=== PATIENT | male | born 1985 | race African-American/Black ===

== ENCOUNTER 2017-12-17 12:30 | Inpatient (IN) ==
[2017-12-17] MEDS ORDERED: Sod Chloride 0.9% Inj 1,000 ML IV.SIG ONE ×2 (14:31→16:46)
--- NOTE | 2017-12-17 14:50 | ED ---
HPI General Chief complaint: Weakness Stated complaint: General weakness Time Seen by Provider: 12/17/17 14:21 Source: patient Mode of arrival: ambulatory Limitations: no limitations History of Present Illness HPI Narrative: Patient is a previously healthy 32-year-old male who presents with complaint of generalized weakness over the last several days. He states that several days ago he was working out and that he thinks he got dehydrated. He has had myalgias and generalized weakness since. He has been trying to rehydrate but thinks his urine is darker than normal. He denies fever and chills. Denies abdominal pain, chest pain, dyspnea. He does state that he also has some "boils" in his right groin that appeared after he was working in the sun that he is also concerned about. Complaint: generalized weakness Onset (ago): day(s) Duration: constant Location: generalized Migration: none Severity: mild Relieving factors: none Exacerbating factors: none Related Data Home Medications Medication Instructions Recorded Confirmed No Known Home Medications 12/17/17 12/17/17 Allergies Allergy/AdvReac Type Severity Reaction Status Date / Time No Known Allergies Allergy Verified 12/17/17 14:25 Review of Systems ROS: all other systems reviewed are negative Constitutional Denies fever(s) Eyes Denies blurry vision ENT Denies nasal congestion Cardiovascular Denies chest pain Respiratory Denies dyspnea Gastrointestinal Denies abdominal pain Genitourinary Denies flank pain Musculoskeletal Denies back pain and Denies neck pain Neurologic Denies headache(s) [facility] Medical History Medical History Patient denies medical problems (Acute) Social History Social History Substance History: No History of Abuse Second Hand Smoke Exposure: No Smoking Status: Never smoker How Often Do You Have a Drink Containing Alcohol: Monthly or less Recent Travel in [facility] within the Last 8 Weeks: No Recent Out of Country Travel within the Last 8 Weeks: No Immunization History Tetanus Immunization: Unsure Hx Influenza Vaccine This Season: Unable to Assess Exam Narrative Exam Narrative: GENERAL: Well-appearing male in no acute distress SKIN: Focused skin assessment warm/dry. No rashes. Enlarged lymph node in the right groin. HEAD: Atraumatic. Normocephalic. EYES: Pupils equal and round. No scleral icterus. No injection or drainage. ENT: No nasal bleeding or discharge. Mucous membranes pink and dry. NECK: Trachea midline. No JVD. CARDIOVASCULAR: Regular rate and rhythm. No murmur appreciated. Intact and equal peripheral pulses. RESPIRATORY: No accessory muscle use. Clear to auscultation. Breath sounds equal bilaterally. GASTROINTESTINAL: Abdomen soft, non-tender, nondistended. Hepatic and splenic margins not palpable. MUSCULOSKELETAL: No obvious deformities. No clubbing. No cyanosis. No edema. NEUROLOGICAL: Awake and alert. No obvious cranial nerve deficits. Motor grossly within normal limits. Normal sensation. No ataxia. Normal speech. PSYCHIATRIC: Appropriate mood and affect; insight and judgment normal. Course Initial Documented Vital Signs Temperature 98.2 F 12/17/17 12:34 Pulse Rate 108 H 12/17/17 12:34 Respiratory Rate 20 12/17/17 12:34 Blood Pressure 148/86 H 12/17/17 12:34 Pulse Oximetry 99 12/17/17 12:34 Last Documented Vital Signs Temperature 98.2 F 12/17/17 12:34 Pulse Rate 108 H 12/17/17 12:34 Respiratory Rate 20 12/17/17 12:34 Blood Pressure 148/86 H 12/17/17 12:34 Pulse Oximetry 99 12/17/17 15:22 Medical Decision Making MDM Narrative Medical decision making narrative: Patient is a previously healthy 32-year-old male who presents with complaint of several days of weakness. He appeared dehydrated on arrival was given 2 L. Labs did reveal a metabolic acidosis with hyperglycemia and elevated beta hydroxybutyrate acid, consistent with DKA. He has been started on an insulin drip with fluids per the DKA protocol. He has been admitted to the family medicine residents to the ICU for further management and evaluation. Medical Screen Exam Complete: Yes Emergency Medical Condition: Yes Differential Diagnosis Differential Diagnosis: Differential diagnosis includes but is not limited to rhabdomyolysis, renal failure, dehydration, electrolyte abnormality, sepsis. Medical Records Medical records reviewed: Yes I reviewed the patient's medical records. Lab Data Lab results reviewed: Yes I reviewed the patient's lab results. Lab results narrative: Labs reveal metabolic acidosis with hyperglycemia. Result diagrams: 12/17/17 14:57 12/17/17 14:57 Lab Results 12/17/17 12/17/17 12/17/17 Range/Units 14:57 14:57 15:20 WBC 10.8 (4.0-11.0) th/mm3 RBC 5.56 (4.50-5.90) mil/mm3 Hgb 15.0 (13.0-17.0) gm/dL Hct 46.3 (39.0-51.0) % MCV 83.3 (80.0-100.0) fL MCH 26.9 L (27.0-34.0) pg MCHC 32.3 (32.0-36.0) % RDW 15.8 (11.6-17.2) % Plt Count 187 (150-450) th/mm3 MPV 10.1 (7.0-11.0) fL Sodium 129 L (136-145) meq/L Potassium 4.3 (3.5-5.1) meq/L Chloride 100 (98-107) meq/L Carbon Dioxide 12.5 L (21.0-32.0) meq/L Anion Gap 17 H (5-15) meq/L BUN 7 (7-18) mg/dL Creatinine 1.39 H (0.60-1.30) mg/dL Estimated GFR 73 L (>89) mL/min Random Glucose 505 H* (74-106) mg/dL Lactic Acid (0.4-2.0) mmol/L Calcium 8.9 (8.5-10.1) mg/dL Total Bilirubin 0.6 (0.2-1.0) mg/dL AST 10 L (15-37) U/L ALT 25 (12-78) U/L Alkaline Phosphatase 123 H (45-117) U/L Total Creatine Kinase 172 (39-308) U/L Troponin I Less than 0.02 L (0.02-0.05) ng/mL Total Protein 8.8 H (6.4-8.2) g/dL Albumin 3.5 (3.4-5.0) g/dL Beta-Hydroxybutyric Acd (0.00-0.39) mmol/L Urine Color Straw (Yellw/Straw) Urine Clarity Hazy H (Clear) Urine pH 5.0 (5.0-8.5) Ur Specific [place] 1.029 (1.002-1.035) Urine Protein Negative (Neg-Trace) mg/dL Urine Glucose (UA) 500 or greater (Negative) mg/dL Urine Ketones 80 or greater (Negative) mg/dL Urine Occult Blood Small H (Negative) Urine Nitrate Negative (Negative) Urine Bilirubin Negative (Negative) Urine Urobilinogen Less than 2 (Less than 2) mg/dL Ur Leukocyte Esterase Small H (Negative) Urine RBC 5 H (0-3) /hpf Urine WBC 1 (0-5) /hpf Ur Squamous Epith Cells 2 (0-5) /hpf Urine Bacteria Rare H (None) /hpf Urine Yeast Occasional H (None) /hpf Micro UA Comment Culture not ind Urine Culture Comments Culture not ind 12/17/17 12/17/17 Range/Units 16:55 16:55 WBC (4.0-11.0) th/mm3 RBC (4.50-5.90) mil/mm3 Hgb (13.0-17.0) gm/dL Hct (39.0-51.0) % MCV (80.0-100.0) fL MCH (27.0-34.0) pg MCHC (32.0-36.0) % RDW (11.6-17.2) % Plt Count (150-450) th/mm3 MPV (7.0-11.0) fL Sodium (136-145) meq/L Potassium (3.5-5.1) meq/L Chloride (98-107) meq/L Carbon Dioxide (21.0-32.0) meq/L Anion Gap (5-15) meq/L BUN (7-18) mg/dL Creatinine (0.60-1.30) mg/dL Estimated GFR (>89) mL/min Random Glucose (74-106) mg/dL Lactic Acid 1.5 (0.4-2.0) mmol/L Calcium (8.5-10.1) mg/dL Total Bilirubin (0.2-1.0) mg/dL AST (15-37) U/L ALT (12-78) U/L Alkaline Phosphatase (45-117) U/L Total Creatine Kinase (39-308) U/L Troponin I (0.02-0.05) ng/mL Total Protein (6.4-8.2) g/dL Albumin (3.4-5.0) g/dL Beta-Hydroxybutyric Acd 6.73 H (0.00-0.39) mmol/L Urine Color (Yellw/Straw) Urine Clarity (Clear) Urine pH (5.0-8.5) Ur Specific [place] (1.002-1.035) Urine Protein (Neg-Trace) mg/dL Urine Glucose (UA) (Negative) mg/dL Urine Ketones (Negative) mg/dL Urine Occult Blood (Negative) Urine Nitrate (Negative) Urine Bilirubin (Negative) Urine Urobilinogen (Less than 2) mg/dL Ur Leukocyte Esterase (Negative) Urine RBC (0-3) /hpf Urine WBC (0-5) /hpf Ur Squamous Epith Cells (0-5) /hpf Urine Bacteria (None) /hpf Urine Yeast (None) /hpf Micro UA Comment Urine Culture Comments ECG Data EKG Prior to Arrival: No Attestation: I personally reviewed and interpreted this ECG as follows: (Sinus rhythm at a rate of 91 bpm, benign early re-polarization seen on EKG no other ST or T-wave changes.) Discharge Plan Discharge Disposition Patient Disposition: 30 Still Patient Discharge Condition Condition: Serious Discharge Details Diagnosis: DKA (diabetic ketoacidoses), Acute dehydration Physicians Team ED Provider: Kelly Saucedo Primary Care Provider: Primary Care Genesis Mcknight Attending Provider: Aleksander Gomez Discharge Interventions Interventions: Vital Signs Last Done: 12/17/17 12:34 Status ED Status: Admitted Patient
[2017-12-17 15:36] LABS: Hematocrit 46.3 % (39.0-51.0); Mean Corpuscular HGB Conc 32.3 % (32.0-36.0); Mean Corpuscular Hemoglobin 26.9 pg (27.0-34.0); Mean Corpuscular Volume 83.3 fL (80.0-100.0); Mean Platelet Volume 10.1 fL (7.0-11.0); Platelet Count 187 th/mm3 (150-450); Red Blood Count 5.56 mil/mm3 (4.50-5.90); Red Cell Distribution Width 15.8 % (11.6-17.2); White Blood Count 10.8 th/mm3 (4.0-11.0)
[2017-12-17 15:58] LABS: Bacteria,Urine Rare /hpf; Bilirubin,Urine Negative (Negative); Clarity,Urine Hazy (Clear); Color,Urine Straw (Yellw/Straw); Glucose,Urine (UA) 500 or Greater mg/dL (Negative); Leukocyte Esterase,Urine Small (Negative); Nitrite,Urine Negative (Negative); Specific Gravity,Urine 1.029 (1.002-1.035); Squamous Epithelial Cell,Urine 2 /hpf (0-5)
[2017-12-17 16:01] LABS: Anion Gap 17 meq/L (5-15)
[2017-12-17 16:17] LABS: Alanine Aminotransferase 25 U/L (12-78); Albumin 3.5 g/dL (3.4-5.0); Alkaline Phosphatase 123 U/L (45-117); Aspartate Aminotransferase 10 U/L (15-37); Blood Urea Nitrogen 7 mg/dL (7-18); Calcium 8.9 mg/dL (8.5-10.1); Carbon Dioxide 12.5 meq/L (21.0-32.0); Chloride 100 meq/L (98-107); Creatine Kinase 172 U/L (39-308); Glomerular Filtration Rate 73 mL/min (>89); Potassium 4.3 meq/L (3.5-5.1); Sodium 129 meq/L (136-145); Total Protein 8.8 g/dL (6.4-8.2)
[2017-12-17 16:28] LABS: Glucose,Random 505 mg/dL (74-106)
[2017-12-17] MEDS ORDERED: Potassium Chlor 20 mEq Premix 20 MEQ/100 ML PIGGYBACK IV.SIG PRN ×2 (17:45)
[2017-12-17] MEDS ORDERED: Sodium Phosphate Inj 15 MMOL in Sodium Chlor 0.9% Inj 100 ML IV.SIG PRN (17:45)
[2017-12-17 18:15] LABS: VBG Base Excess -14.6 mmol/L (-2-2); VBG Blood Gas Oxygen Content 9.9 Vol % (9.0-17.0); VBG PCO2 32 mmHG (44-48); VBG PH 7.19 (7.360-7.400); VBG PO2 30 mmHG (35-40)
[2017-12-17] MEDS: Sod Chloride 0.9% Inj 1,000 ML IV.CONT SCH (18:17)
[2017-12-17] MEDS ORDERED: Bisacodyl 10 MG Supp RECTAL PRN (18:52)
[2017-12-17] MEDS: Insulin Regular (For Infusion) 100 UNIT in Sodium Chlor 0.9% Inj 99 ML IV.CONT PRN (18:56)
[2017-12-17] MEDS: Potassium Chlor 20 mEq Premix 20 MEQ/100 ML PIGGYBACK IV.SIG PRN ×2 (18:57→23:13)
[2017-12-17 19:03] LABS: Calcium 8.1 mg/dL (8.5-10.1); Carbon Dioxide 13.4 meq/L (21.0-32.0)
[2017-12-17] MEDS: Enoxaparin Inj 40 MG/0.4 ML Syringe SQ SCH (19:46)
--- NOTE | 2017-12-17 19:56 | P.HPFP ---
History of Present Illness Primary Care Physician: No Primary Care Physician Chief Complaint: weakness History of Present Illness: 32-year-old male with no past medical history who presents with complaint of generalized weakness over the last 2 weeks. For years been having these episodes but have only lasted a couple days and resolved. Said the weakness was getting worse as well as the nausea and vomiting. Was unable to eat much yesterday and nothing today. Had decreased appetite and noticed a 20 pound weight loss over the last 3 weeks. Feels more sleepy than usual. He noticed an increase in urination going about 10 times a day but not painful. Has had some constipation. Has felt dizzy. He said he would feel better at times when eating fruit. Has been trying to stay hydrated drinking lots of water. He has been trying to rehydrate but thinks his urine is darker than normal. He denies fever and chills. Denies abdominal pain, chest pain, dyspnea. He says his family medical history of high blood pressure but no diabetes. Has endorsed right leg pain since yesterday and his lower calf and states he has not been active or moving. Started a couple days ago but no erythema or swelling. He is sexually active and uses condoms but has not had the energy recently. 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 Stopped working 2 weeks ago because of weakness. - Diagnosis (1) DKA (diabetic ketoacidoses) (2) Right leg pain (3) Nutrition, metabolism, and development symptoms Inpatient Certification: I certify that the inpatient services were ordered in accordance with Medicare regulations governing the order. This includes certification that hospital inpatient services are reasonable and necessary and in the case of services not specified as inpatient-only under 42 CFR 419.22(n), that they are appropriately provided as inpatient services in accordance to with the 2-midnight benchmark under 43 CFR 412.3(e) Estimated Total Length of Stay (Days): 4 Plans for Post Hospital Care: Home Review of Systems Constitutional: Reports weakness, Reports weight loss, Denies fever(s) Eyes: Denies change in vision Cardiovascular: Denies chest pain Respiratory: Denies shortness of breath Gastrointestinal: Reports constipation, Reports nausea, Reports vomiting, Denies abdominal pain Comments: Last bowel movement two days ago. Usually goes daily Genitourinary: Reports urinary frequency, Denies painful urination Comments: numbness right hand Skin/Breast: Denies rash Neurologic: Reports dizziness, Reports weakness, Denies loss of vision Psychiatric: Reports change in sex drive Endocrine: Reports increased thirst Allergic/Immunologic: Reports GI upset with certain foods PMFSH - History History Provided By: Patient - Medical / Surgical Hx Neg / Unobtainable Medical Problems Denied: Yes Surgical History: No Previous Surgery - Medical History Medical History: Medical History (Last Reviewed 12/17/17 @ 14:49 by Kelly Saucedo MD) Patient denies medical problems - Family History Family History: Family History (Last Updated 12/17/17 @ 19:49 by Oliva Mehta MD, R1) Other Family history of hypertension - Tobacco History Second Hand Smoke Exposure: No Smoking Status: Never smoker - Alcohol History How Often Do You Have a Drink Containing Alcohol: Monthly or less - Substance Use History Substance History: No History of Abuse - Travel History Recent Travel in the [facility] Within the Last 8 Weeks: No Recent Travel Out of the Country Within the Last 8 Weeks: No - Immunization History Tetanus Immunization: Unsure Hx Influenza Vaccine This Season: Unable to Assess Medications and Allergies Active Medications: Active Medications Al Hydroxide/Mg Hydroxide (Milk Of Johnson Liq) 30 ml PO Q12H PRN PRN Reason: Mild Constipation Bisacodyl (Dulcolax Supp) 10 mg RECTAL DAILY PRN PRN Reason: SEVERE CONSITIPATION Enoxaparin Sodium (Lovenox Inj) 40 mg SQ Q24H BEN Dextrose/Sodium Chloride (D5w/Normal Saline Inj) 1,000 mls @ 200 mls/hr IV.CONT .Q5H BEN Insulin Human Regular 100 unit (/ Sodium Chloride) 100 mls @ 13 mls/hr IV.CONT TITRATE PRN; Protocol PRN Reason: See protocol Last Admin: 12/17/17 18:56 Dose: 13 units/hr, 13 mls/hr Potassium Chloride (Kcl 20 Meq Premix Inj) 20 meq in 100 mls @ 50 mls/hr IV.SIG Q2H PRN PRN Reason: for K+ 4.5 to 5 Potassium Chloride (Kcl 20 Meq Premix Inj) 20 meq in 100 mls @ 50 mls/hr IV.SIG Q2H PRN PRN Reason: for K+ 3.5 to 4.4 Last Admin: 12/17/17 18:57 Dose: 50 mls/hr Potassium Chloride (Kcl 20 Meq Premix Inj) 20 meq in 100 mls @ 50 mls/hr IV.SIG Q2H PRN PRN Reason: for Initial K+ ONLY < 3.5 Sodium Chloride (Ns Inj) 1,000 mls @ 250 mls/hr IV.CONT .Q4H BEN Last Admin: 12/17/17 18:17 Dose: 250 mls/hr Sodium Phosphate 15 mmol/ (Sodium Chloride) 105 mls @ 25 mls/hr IV.SIG UNSCH PRN PRN Reason: for Phosphate Level < 1.0 Potassium Chloride (Kcl 20 Meq Premix Inj) 20 meq in 100 mls @ 50 mls/hr IV.SIG Q2H PRN PRN Reason: for Subsequent K+ < 3.5 Ondansetron HCl (Zofran Inj) 4 mg IV.PUSH Q6H PRN PRN Reason: NAUSEA OR VOMITING Senna/Docusate Sodium (Lisandra-Colace) 1 tab PO BID BEN Sennosides (Senokot) 17.2 mg PO Q12H PRN PRN Reason: Moderate Constipation Sodium Bicarbonate (Sodium Bicarbonate 8.4% Inj) 100 meq IV.PUSH UNSCH PRN PRN Reason: for pH less than 6.9 Sodium Bicarbonate (Sodium Bicarbonate 8.4% Inj) 50 meq IV.PUSH UNSCH PRN PRN Reason: for pH 6.9 to 7.0 Sodium Chloride (Ns Flush) 2 ml IV.FLUSH PRN PRN PRN Reason: FLUSH AFTER USING IV ACCESS Allergies Allergy/AdvReac Type Severity Reaction Status Date / Time No Known Allergies Allergy Verified 12/17/17 14:25 Home Medications Medication Instructions Recorded Confirmed Type No Known Home Medications 12/17/17 12/17/17 History Exam Vital signs: Vital Signs 12/17/17 12:34 12/17/17 15:22 12/17/17 18:00 Temperature 98.2 F Pulse Rate 108 H 86 Respiratory Rate 20 20 Blood Pressure 148/86 H 143/84 H Pulse Oximetry 99 99 99 Intake & Output 12/17/17 12/17/17 12/18/17 06:59 18:59 06:59 Intake Total 1999 Balance 1999 Weight 127.006 kg Intake: IV 1999 NS Inj 1,000 ML @ Wide Open IV. 1999 SIG BOLUS ONE Rx#:[id number] - Constitutional moderate distress - Routine HEENT Exam ENT: Present: mucous membranes dry - Detailed Respiratory Exam bilateral Present: clear to auscultation. Absent: rhonchi, wheezes - Routine Cardiovascular Exam Present: RRR, S1, S2. Absent: murmur - Routine Abdominal Exam Present: soft, normoactive bowel sounds. Absent: tenderness, distended - Detailed Lower Extremity Exam Comments: Right leg sore mid tibia with some erythema. Nontender calf and no swelling. - Routine Neurological Exam Present: alert, oriented X3, CN II-XII intact, normal speech. Absent: sensory deficit 5/5 strength upper and lower extremities Results - Labs Result diagrams: 12/17/17 14:57 12/17/17 18:10 Abnormal lab results 12/17/17 12/17/17 12/17/17 Range/Units 14:57 14:57 15:20 MCH 26.9 L (27.0-34.0) pg VBG pH (7.360-7.400) VBG pCO2 (44-48) mmHG VBG pO2 (35-40) mmHG VBG HCO3 (22-26) mmol/L VBG O2 Saturation (70-76) % VBG Base Excess (-2-2) mmol/L Sodium 129 L (136-145) meq/L Carbon Dioxide 12.5 L (21.0-32.0) meq/L Anion Gap 17 H (5-15) meq/L Creatinine 1.39 H (0.60-1.30) mg/dL Estimated GFR 73 L (>89) mL/min Random Glucose 505 H* (74-106) mg/dL Calcium (8.5-10.1) mg/dL AST 10 L (15-37) U/L Alkaline Phosphatase 123 H (45-117) U/L Troponin I Less than 0.02 L (0.02-0.05) ng/mL Total Protein 8.8 H (6.4-8.2) g/dL Beta-Hydroxybutyric Acd (0.00-0.39) mmol/L Urine Clarity Hazy H (Clear) Urine Occult Blood Small H (Negative) Ur Leukocyte Esterase Small H (Negative) Urine RBC 5 H (0-3) /hpf Urine Bacteria Rare H (None) /hpf Urine Yeast Occasional H (None) /hpf 12/17/17 12/17/17 12/17/17 Range/Units 16:55 18:10 18:10 MCH (27.0-34.0) pg VBG pH 7.19 L* (7.360-7.400) VBG pCO2 32 L (44-48) mmHG VBG pO2 30 L (35-40) mmHG VBG HCO3 12 L* (22-26) mmol/L VBG O2 Saturation 51 L (70-76) % VBG Base Excess -14.6 L (-2-2) mmol/L Sodium (136-145) meq/L Carbon Dioxide 13.4 L (21.0-32.0) meq/L Anion Gap 17 H (5-15) meq/L Creatinine (0.60-1.30) mg/dL Estimated GFR 81 L (>89) mL/min Random Glucose 354 H D (74-106) mg/dL Calcium 8.1 L D (8.5-10.1) mg/dL AST (15-37) U/L Alkaline Phosphatase (45-117) U/L Troponin I (0.02-0.05) ng/mL Total Protein (6.4-8.2) g/dL Beta-Hydroxybutyric Acd 6.73 H (0.00-0.39) mmol/L Urine Clarity (Clear) Urine Occult Blood (Negative) Ur Leukocyte Esterase (Negative) Urine RBC (0-3) /hpf Urine Bacteria (None) /hpf Urine Yeast (None) /hpf Short CBC 12/17/17 Range/Units 14:57 WBC 10.8 (4.0-11.0) th/mm3 Hgb 15.0 (13.0-17.0) gm/dL Hct 46.3 (39.0-51.0) % Plt Count 187 (150-450) th/mm3 BMP 12/17/17 12/17/17 14:57 18:10 Sodium 129 L 137 Potassium 4.3 4.0 Chloride 100 107 Carbon Dioxide 12.5 L 13.4 L BUN 7 7 Creatinine 1.39 H 1.26 Calcium 8.9 8.1 L D Cardiac Enzymes 12/17/17 Range/Units 14:57 Total Creatine Kinase 172 (39-308) U/L Troponin I Less than 0.02 L (0.02-0.05) ng/mL Liver Function 08/17/18 Range/Units 14:57 Total Bilirubin 0.6 (0.2-1.0) mg/dL AST 10 L (15-37) U/L ALT 25 (12-78) U/L Alkaline Phosphatase 123 H (45-117) U/L Albumin 3.5 (3.4-5.0) g/dL Urine 12/17/17 Range/Units 15:20 Urine Color Straw (Yellw/Straw) Urine Clarity Hazy H (Clear) Urine pH 5.0 (5.0-8.5) Ur Specific [place] 1.029 (1.002-1.035) Urine Protein Negative (Neg-Trace) mg/dL Urine Glucose (UA) 500 or greater (Negative) mg/dL Caprini VTE Risk Assessment Caprini VTE Risk Assessment: No/Low Risk (score <= 1) Caprini Risk Assessment Model: Point Value = 1 Point Value = 2 Point Value = 3 Point Value = 5 Age 41-60 Minor surgery BMI > 25 kg/m2 Swollen legs Varicose veins or History of unexplained or recurrent spontaneous Oral contraceptives or hormone replacement Sepsis (< 1 month) Serious lung disease, including pneumonia (< 1 month) Abnormal pulmonary function Acute myocardial infarction Congestive heart failure (< 1 month) History of inflammatory bowel disease Medical patient at bed rest Age 61-74 Arthroscopic surgery Major open surgery (> 45 min) Laparoscopic surgery (> 45 min) Malignancy Confined to bed (> 72 hours) Immobilizing plaster cast Central venous access Age >= 75 History of VTE Family history of VTE Factor V Leiden Prothrombin [id number] Lupus anticoagulant Anticardiolipin antibodies Elevated serum homocysteine Heparin-induced thrombocytopenia Other congenital or acquired thrombophilia Stroke (< 1 month) Elective arthroplasty Hip, pelvis, or leg fracture Acute spinal cord injury (< 1 month) Prophylaxis Regimen: Total Risk Factor Score Risk Level Prophylaxis Regimen 0-1 Low Early ambulation 2 Moderate Order ONE of the following: *Sequential Compression Device (SCD) *Heparin 5000 units SQ BID 3-4 Higher Order ONE of the following medications: *Heparin 5000 units SQ TID *Enoxaparin/Lovenox 40 mg SQ daily (WT < 150 kg, CrCl > 30 mL/min) *Enoxaparin/Lovenox 30 mg SQ daily (WT < 150 kg, CrCl > 10-29 mL/min) *Enoxaparin/Lovenox 30 mg SQ BID (WT < 150 kg, CrCl > 30 mL/min) AND/OR *Sequential Compression Device (SCD) 5 or more Highest Order ONE of the following medications: *Heparin 5000 units SQ TID (Preferred with Epidurals) *Enoxaparin/Lovenox 40 mg SQ daily (WT < 150 kg, CrCl > 30 mL/min) *Enoxaparin/Lovenox 30 mg SQ daily (WT < 150 kg, CrCl > 10-29 mL/min) *Enoxaparin/Lovenox 30 mg SQ BID (WT < 150 kg, CrCl > 30 mL/min) AND *Sequential Compression Device (SCD) Assessment and Plan - Assessment (1) DKA (diabetic ketoacidoses) Code(s): E13.10 - Other specified diabetes mellitus with ketoacidosis without coma Status: Acute Plan: Glucose admission 505, gap 17, beta hydroxybutyrate 6.73, potassium 4.3. -2 L of normal saline, glucose improved to 354 -Maintenance fluids normal saline 250 mL/h -Replete potassium per protocol -Administer insulin per protocol: 0.1 U/kg/h no bolus was given after response to fluid bolus -BNP every 4 hours, mag P beta hydroxybutyrate every 4 hours -Blood glucose checks q. one hour -Diabetes management and case repairer consult -Once glucose less than 250 and gap less than 12 and patient is eating add dextrose to fluids and consider Subcutaneous insulin (2) Right leg pain Code(s): M79.604 - Pain in right leg Status: Acute Plan: Nontender and no swelling or erythema on exam. Given patient's decreased mobility need to rule out DVT -Right leg ultrasound (3) Nutrition, metabolism, and development symptoms Code(s): R63.8 - Other symptoms and signs concerning food and fluid intake Status: Acute Plan: Diet: Diabetic 2200 DVT prophylaxis: Lovenox Full code - Assessment and Plan 32-year-old male no past medical history admitted for DKA. Increasing weakness , urinary frequency, thirst over the past 2 weeks. Also endorses right calf tenderness. Glucose on admission 505 with gap of 17. Given 2 L of normal saline and glucose improved to 354. Start on maintenance normal saline to 50 mL /h as well as potassium per protocol. Started on insulin infusion 0.1 U/kg/h. Ultrasound Doppler of right leg ordered to rule out DVT Disposition: 3 days Discharge: Home (1) DKA (diabetic ketoacidoses) Qualifiers: Diabetes mellitus type: other specified (including ROCIO) Diabetes mellitus complication detail: without coma Qualified Code(s): E13.10 - Other specified diabetes mellitus with ketoacidosis without coma
[2017-12-17 19:59] LABS: Beta Hydroxybutyric Acid 6.66 mmol/L (0.00-0.39); Phosphorus 2.5 mg/dL (2.5-4.9)
[2017-12-17] MEDS: Senna/Docusate Sodium 8.6/50 MG Tablet PO SCH (20:33)
--- NOTE | 2017-12-17 20:52 | P.PNFP ---
Subjective Interval history: Attending note: 32-year-old -Citizen Of [place] gentleman presented to the emergency room on the day of admission with a 2-3 week history of increasing thirst, polyuria, and what he had noted to be about a 20 pound weight loss over the last several months. Patient knew that something was not right and with the onset of dry heaves and is generally feeling very weak unable to work he presented to the emergency room with findings that included. An initial glucose of 505, sodium 129 potassium 4.3 beta hydroxybutyric acid 6.73 ABG pH 7.19, VBG PCO2 32, VBG O2 30, PBG bicarbonate 12 consistent with a new onset of type 1 diabetes and diabetic ketoacidosis. Please refer to the resident's complete history and physical for complete discussion of past medical history, family history, social history and review of systems. Currently the patient is resting comfortably in the intensive care unit. States he is actually hungry would like to eat. Also states that he would like some antibiotics for "boils" in the groin, has a history of similar infections. Results - Labs Result diagrams: 12/17/17 14:57 12/17/17 18:10 Abnormal lab results 12/17/17 12/17/17 12/17/17 Range/Units 14:57 14:57 15:20 MCH 26.9 L (27.0-34.0) pg VBG pH (7.360-7.400) VBG pCO2 (44-48) mmHG VBG pO2 (35-40) mmHG VBG HCO3 (22-26) mmol/L VBG O2 Saturation (70-76) % VBG Base Excess (-2-2) mmol/L Sodium 129 L (136-145) meq/L Carbon Dioxide 12.5 L (21.0-32.0) meq/L Anion Gap 17 H (5-15) meq/L Creatinine 1.39 H (0.60-1.30) mg/dL Estimated GFR 73 L (>89) mL/min POC Glucose (68-110) mg/dl Random Glucose 505 H* (74-106) mg/dL Calcium (8.5-10.1) mg/dL AST 10 L (15-37) U/L Alkaline Phosphatase 123 H (45-117) U/L Troponin I Less than 0.02 L (0.02-0.05) ng/mL Total Protein 8.8 H (6.4-8.2) g/dL Beta-Hydroxybutyric Acd (0.00-0.39) mmol/L Urine Clarity Hazy H (Clear) Urine Occult Blood Small H (Negative) Ur Leukocyte Esterase Small H (Negative) Urine RBC 5 H (0-3) /hpf Urine Bacteria Rare H (None) /hpf Urine Yeast Occasional H (None) /hpf 12/17/17 12/17/17 12/17/17 Range/Units 16:55 18:10 18:10 MCH (27.0-34.0) pg VBG pH 7.19 L* (7.360-7.400) VBG pCO2 32 L (44-48) mmHG VBG pO2 30 L (35-40) mmHG VBG HCO3 12 L* (22-26) mmol/L VBG O2 Saturation 51 L (70-76) % VBG Base Excess -14.6 L (-2-2) mmol/L Sodium (136-145) meq/L Carbon Dioxide 13.4 L (21.0-32.0) meq/L Anion Gap 17 H (5-15) meq/L Creatinine (0.60-1.30) mg/dL Estimated GFR 81 L (>89) mL/min POC Glucose (68-110) mg/dl Random Glucose 354 H D (74-106) mg/dL Calcium 8.1 L D (8.5-10.1) mg/dL AST (15-37) U/L Alkaline Phosphatase (45-117) U/L Troponin I (0.02-0.05) ng/mL Total Protein (6.4-8.2) g/dL Beta-Hydroxybutyric Acd 6.73 H 6.66 H (0.00-0.39) mmol/L Urine Clarity (Clear) Urine Occult Blood (Negative) Ur Leukocyte Esterase (Negative) Urine RBC (0-3) /hpf Urine Bacteria (None) /hpf Urine Yeast (None) /hpf 12/17/17 Range/Units 20:04 MCH (27.0-34.0) pg VBG pH (7.360-7.400) VBG pCO2 (44-48) mmHG VBG pO2 (35-40) mmHG VBG HCO3 (22-26) mmol/L VBG O2 Saturation (70-76) % VBG Base Excess (-2-2) mmol/L Sodium (136-145) meq/L Carbon Dioxide (21.0-32.0) meq/L Anion Gap (5-15) meq/L Creatinine (0.60-1.30) mg/dL Estimated GFR (>89) mL/min POC Glucose 253 H (68-110) mg/dl Random Glucose (74-106) mg/dL Calcium (8.5-10.1) mg/dL AST (15-37) U/L Alkaline Phosphatase (45-117) U/L Troponin I (0.02-0.05) ng/mL Total Protein (6.4-8.2) g/dL Beta-Hydroxybutyric Acd (0.00-0.39) mmol/L Urine Clarity (Clear) Urine Occult Blood (Negative) Ur Leukocyte Esterase (Negative) Urine RBC (0-3) /hpf Urine Bacteria (None) /hpf Urine Yeast (None) /hpf Short CBC 12/17/17 Range/Units 14:57 WBC 10.8 (4.0-11.0) th/mm3 Hgb 15.0 (13.0-17.0) gm/dL Hct 46.3 (39.0-51.0) % Plt Count 187 (150-450) th/mm3 BMP 12/17/17 12/17/17 14:57 18:10 Sodium 129 L 137 Potassium 4.3 4.0 Chloride 100 107 Carbon Dioxide 12.5 L 13.4 L BUN 7 7 Creatinine 1.39 H 1.26 Calcium 8.9 8.1 L D Cardiac Enzymes 12/17/17 Range/Units 14:57 Total Creatine Kinase 172 (39-308) U/L Troponin I Less than 0.02 L (0.02-0.05) ng/mL Liver Function 12/17/17 Range/Units 14:57 Total Bilirubin 0.6 (0.2-1.0) mg/dL AST 10 L (15-37) U/L ALT 25 (12-78) U/L Alkaline Phosphatase 123 H (45-117) U/L Albumin 3.5 (3.4-5.0) g/dL Urine 12/17/17 Range/Units 15:20 Urine Color Straw (Yellw/Straw) Urine Clarity Hazy H (Clear) Urine pH 5.0 (5.0-8.5) Ur Specific [place] 1.029 (1.002-1.035) Urine Protein Negative (Neg-Trace) mg/dL Urine Glucose (UA) 500 or greater (Negative) mg/dL Physical Exam Vital signs: Vital Signs 12/17/17 12:34 12/17/17 15:22 12/17/17 18:00 Temperature 98.2 F Pulse Rate 108 H 86 Respiratory Rate 20 20 Blood Pressure 148/86 H 143/84 H Pulse Oximetry 99 99 99 12/17/17 20:00 12/17/17 20:23 Temperature 99.1 F Pulse Rate 86 Respiratory Rate 16 Blood Pressure 136/79 Pulse Oximetry 94 L 100 Intake & Output 12/17/17 12/17/17 12/18/17 06:59 18:59 06:59 Intake Total 1999 100 / 100 Balance 1999 100 / 100 Weight 127.006 kg 122.4 kg Intake: IV 1999 100 / 100 KCl 20 mEq Premix Inj 20 meq In 100 / 100 100 ml @ 50 mls/hr IV.SIG Q2H PRN Rx#:[id number] NS Inj 1,000 ML @ Wide Open IV. 1999 SIG BOLUS ONE Rx#:[id number] Other: Weight On Admission 122.4 kg Narrative: Current vital signs blood pressure 136/79. Pulse 86/min and regular respirations 16 temperature 99.1. General appearance young -Citizen Of [place] gentleman resting comfortably on his right side, alert oriented and pleasant conversation. No active complaints other than "being hungry ". Additional examination is pending. Assessment and Plan - Assessment (1) DKA (diabetic ketoacidoses) Code(s): E13.10 - Other specified diabetes mellitus with ketoacidosis without coma Status: Acute Plan: Glucose admission 505, gap 17, beta hydroxybutyrate 6.73, potassium 4.3. -2 L of normal saline, glucose improved to 354 -Maintenance fluids normal saline 250 mL/h -Replete potassium per protocol -Administer insulin per protocol: 0.1 U/kg/h no bolus was given after response to fluid bolus -BNP every 4 hours, mag P beta hydroxybutyrate every 4 hours -Blood glucose checks q. one hour -Diabetes management and high risk case manager consult -Once glucose less than 250 and gap less than 12 and patient is eating add dextrose to fluids and consider Subcutaneous insulin (2) Right leg pain Code(s): M79.604 - Pain in right leg Status: Acute Plan: Nontender and no swelling or erythema on exam. Given patient's decreased mobility need to rule out DVT -Right leg ultrasound (3) Nutrition, metabolism, and development symptoms Code(s): R63.8 - Other symptoms and signs concerning food and fluid intake Status: Acute Plan: Diet: Diabetic 2200 DVT prophylaxis: Lovenox Full code - Assessment and Plan 32-year-old male no past medical history admitted for DKA. Increasing weakness , urinary frequency, thirst over the past 2 weeks. Also endorses right calf tenderness. Glucose on admission 505 with gap of 17. Given 2 L of normal saline and glucose improved to 354. Start on maintenance normal saline to 50 mL /h as well as potassium per protocol. Started on insulin infusion 0.1 U/kg/h. Ultrasound Doppler of right leg ordered to rule out DVT Disposition: 3 days Discharge: Home Assessment/plan: 32-year-old -Citizen Of [place] gentleman presents with symptoms consistent with a new onset of symptomatic diabetes type 1 with 20 pound weight loss, polyuria, polydipsia, generalized weakness and "dry heaves ". Reviewed with the resident team the treatment of diabetic ketoacidosis. This does not appear to be a hyperglycemic hyperosmolar state. See HPI for presenting lab numbers. Agree with resident evaluation and plan as recorded. Discussed with the resident team. Aleksander Gomez MD 12/17/2017. (1) DKA (diabetic ketoacidoses) Qualifiers: Diabetes mellitus type: other specified (including ROCIO) Diabetes mellitus complication detail: without coma Qualified Code(s): E13.10 - Other specified diabetes mellitus with ketoacidosis without coma
[2017-12-17] MEDS ORDERED: Morphine Inj 4 MG/ML Vial IV.PUSH ONE (21:35)
[2017-12-17] MEDS: Dextrose 5%/NaCl 0.9% Inj 1,000 ML IV.CONT SCH (22:03)
--- NOTE | 2017-12-17 22:16 | US ---
EXAM DATE: 12/17/2017 10:12 PM EDT AGE/SEX: 32 years / Male INDICATIONS: Right leg pain and groin swelling. CLINICAL DATA: This is the patient's initial encounter. Patient reports that signs and symptoms have been present for 1 week and indicates a pain score of 7/10. MEDICAL/SURGICAL HISTORY: Diabetes. None. COMPARISON: No prior exams available for comparison. TECHNIQUE: Venous ultrasound of both lower extremities was performed from the inguinal ligament to t he proximal calf. Real-time, color Doppler and spectral tracing, compression and augmentation techni ques were used. FINDINGS: Normal compression of the deep venous system from the inguinal region to the proximal calf . No echogenic clot is seen. Normal response of the venous system to augmentation and respiration. Th ere is ill-defined fluid collection in the right side of the groin. This measures up to approximately 4.3 x 2 cm in diameter. CONCLUSION: 1. No evidence of deep venous thrombosis. 2. Ill-defined fluid collection in the right groin region. Electronically signed by: Lux Myers MD 12/17/2017 10:15 PM EDT
[2017-12-18] MEDS: Chlorhexidine Gluconate 2% 1 Pack (2 Cloths) TOPICAL SCH (03:29)
[2017-12-18] MEDS ORDERED: Chlorhexidine Gluconate 2% 1 Pack (2 Cloths) TOPICAL PRN (04:00)
[2017-12-18] MEDS: Insulin Regular (For Infusion) 100 UNIT in Sodium Chlor 0.9% Inj 99 ML IV.CONT PRN (05:36)
[2017-12-18 06:42] LABS: Anion Gap 13 meq/L (5-15); Blood Urea Nitrogen 4 mg/dL (7-18); Calcium 8.4 mg/dL (8.5-10.1); Carbon Dioxide 16.2 meq/L (21.0-32.0); Chloride 108 meq/L (98-107); Glomerular Filtration Rate Greater Than 89 mL/min (>89); Glucose,Random 180 mg/dL (74-106); Phosphorus 1.7 mg/dL (2.5-4.9); Potassium 3.2 meq/L (3.5-5.1); Sodium 137 meq/L (136-145)
[2017-12-18] MEDS: Sod Chloride 0.9% Inj 1,000 ML IV.CONT SCH ×8 (07:24→20:56)
[2017-12-18] MEDS: Dextrose 5%/NaCl 0.9% Inj 1,000 ML IV.CONT SCH ×4 (07:24→10:55)
[2017-12-18] MEDS ORDERED: Lidocaine 2%/Epinephrine 1:100,000 30 ML MDV INFILTRATN ONE (09:18)
[2017-12-18] MEDS: Senna/Docusate Sodium 8.6/50 MG Tablet PO SCH ×2 (09:53→20:56)
[2017-12-18] MEDS: Potassium Chlor 20 mEq Premix 20 MEQ/100 ML PIGGYBACK IV.SIG PRN ×4 (09:58→21:03)
--- NOTE | 2017-12-18 10:23 | P.PNFP ---
Subjective Interval history: No acute events overnight. Patient's blood sugar came down to below 200 in the anion gap improved to 13 overnight. Patient states he feels much better today and is hungry. He continues to feel weak compared to baseline but is improved from the day of admission. Denies any nausea or vomiting, chest pain or shortness of breath. Patient states that he has been getting boils in his inguinal region as well as axillary since he was a teenager. He currently has wounds that are draining in his right inguinal area. Denies any fever, chills. Denies any family history of diabetes. <Nawaf Parr B - 12/18/17 11:45> Results - Labs Result diagrams: 12/17/17 14:57 12/18/17 12:00 <Aleksander Gomez E - 12/18/17 15:37> Abnormal lab results 12/17/17 12/17/17 12/17/17 Range/Units 14:57 14:57 15:20 MCH 26.9 L (27.0-34.0) pg VBG pH (7.360-7.400) VBG pCO2 (44-48) mmHG VBG pO2 (35-40) mmHG VBG HCO3 (22-26) mmol/L VBG O2 Saturation (70-76) % VBG Base Excess (-2-2) mmol/L Sodium 129 L (136-145) meq/L Potassium (3.5-5.1) meq/L Chloride (98-107) meq/L Carbon Dioxide 12.5 L (21.0-32.0) meq/L Anion Gap 17 H (5-15) meq/L BUN (7-18) mg/dL Creatinine 1.39 H (0.60-1.30) mg/dL Estimated GFR 73 L (>89) mL/min POC Glucose (68-110) mg/dl Random Glucose 505 H* (74-106) mg/dL Calcium (8.5-10.1) mg/dL Phosphorus (2.5-4.9) mg/dL AST 10 L (15-37) U/L Alkaline Phosphatase 123 H (45-117) U/L Troponin I Less than 0.02 L (0.02-0.05) ng/mL Total Protein 8.8 H (6.4-8.2) g/dL Beta-Hydroxybutyric Acd (0.00-0.39) mmol/L Urine Clarity Hazy H (Clear) Urine Occult Blood Small H (Negative) Ur Leukocyte Esterase Small H (Negative) Urine RBC 5 H (0-3) /hpf Urine Bacteria Rare H (None) /hpf Urine Yeast Occasional H (None) /hpf 12/17/17 12/17/17 12/17/17 Range/Units 16:55 18:10 18:10 MCH (27.0-34.0) pg VBG pH 7.19 L* (7.360-7.400) VBG pCO2 32 L (44-48) mmHG VBG pO2 30 L (35-40) mmHG VBG HCO3 12 L* (22-26) mmol/L VBG O2 Saturation 51 L (70-76) % VBG Base Excess -14.6 L (-2-2) mmol/L Sodium (136-145) meq/L Potassium (3.5-5.1) meq/L Chloride (98-107) meq/L Carbon Dioxide 13.4 L (21.0-32.0) meq/L Anion Gap 17 H (5-15) meq/L BUN (7-18) mg/dL Creatinine (0.60-1.30) mg/dL Estimated GFR 81 L (>89) mL/min POC Glucose (68-110) mg/dl Random Glucose 354 H D (74-106) mg/dL Calcium 8.1 L D (8.5-10.1) mg/dL Phosphorus (2.5-4.9) mg/dL AST (15-37) U/L Alkaline Phosphatase (45-117) U/L Troponin I (0.02-0.05) ng/mL Total Protein (6.4-8.2) g/dL Beta-Hydroxybutyric Acd 6.73 H 6.66 H (0.00-0.39) mmol/L Urine Clarity (Clear) Urine Occult Blood (Negative) Ur Leukocyte Esterase (Negative) Urine RBC (0-3) /hpf Urine Bacteria (None) /hpf Urine Yeast (None) /hpf 12/17/17 12/17/17 12/17/17 Range/Units 20:04 21:08 21:58 MCH (27.0-34.0) pg VBG pH (7.360-7.400) VBG pCO2 (44-48) mmHG VBG pO2 (35-40) mmHG VBG HCO3 (22-26) mmol/L VBG O2 Saturation (70-76) % VBG Base Excess (-2-2) mmol/L Sodium (136-145) meq/L Potassium (3.5-5.1) meq/L Chloride (98-107) meq/L Carbon Dioxide (21.0-32.0) meq/L Anion Gap (5-15) meq/L BUN (7-18) mg/dL Creatinine (0.60-1.30) mg/dL Estimated GFR (>89) mL/min POC Glucose 253 H 206 H 145 H (68-110) mg/dl Random Glucose (74-106) mg/dL Calcium (8.5-10.1) mg/dL Phosphorus (2.5-4.9) mg/dL AST (15-37) U/L Alkaline Phosphatase (45-117) U/L Troponin I (0.02-0.05) ng/mL Total Protein (6.4-8.2) g/dL Beta-Hydroxybutyric Acd (0.00-0.39) mmol/L Urine Clarity (Clear) Urine Occult Blood (Negative) Ur Leukocyte Esterase (Negative) Urine RBC (0-3) /hpf Urine Bacteria (None) /hpf Urine Yeast (None) /hpf 12/17/17 12/17/17 12/18/17 Range/Units 22:24 23:10 00:05 MCH (27.0-34.0) pg VBG pH (7.360-7.400) VBG pCO2 (44-48) mmHG VBG pO2 (35-40) mmHG VBG HCO3 (22-26) mmol/L VBG O2 Saturation (70-76) % VBG Base Excess (-2-2) mmol/L Sodium (136-145) meq/L Potassium (3.5-5.1) meq/L Chloride (98-107) meq/L Carbon Dioxide (21.0-32.0) meq/L Anion Gap (5-15) meq/L BUN (7-18) mg/dL Creatinine (0.60-1.30) mg/dL Estimated GFR (>89) mL/min POC Glucose 152 H 170 H 172 H (68-110) mg/dl Random Glucose (74-106) mg/dL Calcium (8.5-10.1) mg/dL Phosphorus (2.5-4.9) mg/dL AST (15-37) U/L Alkaline Phosphatase (45-117) U/L Troponin I (0.02-0.05) ng/mL Total Protein (6.4-8.2) g/dL Beta-Hydroxybutyric Acd (0.00-0.39) mmol/L Urine Clarity (Clear) Urine Occult Blood (Negative) Ur Leukocyte Esterase (Negative) Urine RBC (0-3) /hpf Urine Bacteria (None) /hpf Urine Yeast (None) /hpf 12/18/17 12/18/17 12/18/17 Range/Units 01:59 03:05 04:23 MCH (27.0-34.0) pg VBG pH (7.360-7.400) VBG pCO2 (44-48) mmHG VBG pO2 (35-40) mmHG VBG HCO3 (22-26) mmol/L VBG O2 Saturation (70-76) % VBG Base Excess (-2-2) mmol/L Sodium (136-145) meq/L Potassium (3.5-5.1) meq/L Chloride (98-107) meq/L Carbon Dioxide (21.0-32.0) meq/L Anion Gap (5-15) meq/L BUN (7-18) mg/dL Creatinine (0.60-1.30) mg/dL Estimated GFR (>89) mL/min POC Glucose 172 H 185 H 184 H (68-110) mg/dl Random Glucose (74-106) mg/dL Calcium (8.5-10.1) mg/dL Phosphorus (2.5-4.9) mg/dL AST (15-37) U/L Alkaline Phosphatase (45-117) U/L Troponin I (0.02-0.05) ng/mL Total Protein (6.4-8.2) g/dL Beta-Hydroxybutyric Acd (0.00-0.39) mmol/L Urine Clarity (Clear) Urine Occult Blood (Negative) Ur Leukocyte Esterase (Negative) Urine RBC (0-3) /hpf Urine Bacteria (None) /hpf Urine Yeast (None) /hpf 12/18/17 12/18/17 12/18/17 Range/Units 05:06 05:09 06:39 MCH (27.0-34.0) pg VBG pH (7.360-7.400) VBG pCO2 (44-48) mmHG VBG pO2 (35-40) mmHG VBG HCO3 (22-26) mmol/L VBG O2 Saturation (70-76) % VBG Base Excess (-2-2) mmol/L Sodium (136-145) meq/L Potassium 3.2 L D (3.5-5.1) meq/L Chloride 108 H (98-107) meq/L Carbon Dioxide 16.2 L (21.0-32.0) meq/L Anion Gap (5-15) meq/L BUN 4 L (7-18) mg/dL Creatinine (0.60-1.30) mg/dL Estimated GFR (>89) mL/min POC Glucose 192 H 199 H (68-110) mg/dl Random Glucose 180 H D (74-106) mg/dL Calcium 8.4 L (8.5-10.1) mg/dL Phosphorus 1.7 L (2.5-4.9) mg/dL AST (15-37) U/L Alkaline Phosphatase (45-117) U/L Troponin I (0.02-0.05) ng/mL Total Protein (6.4-8.2) g/dL Beta-Hydroxybutyric Acd (0.00-0.39) mmol/L Urine Clarity (Clear) Urine Occult Blood (Negative) Ur Leukocyte Esterase (Negative) Urine RBC (0-3) /hpf Urine Bacteria (None) /hpf Urine Yeast (None) /hpf 12/18/17 12/18/17 12/18/17 Range/Units 07:43 09:06 09:56 MCH (27.0-34.0) pg VBG pH (7.360-7.400) VBG pCO2 (44-48) mmHG VBG pO2 (35-40) mmHG VBG HCO3 (22-26) mmol/L VBG O2 Saturation (70-76) % VBG Base Excess (-2-2) mmol/L Sodium (136-145) meq/L Potassium (3.5-5.1) meq/L Chloride (98-107) meq/L Carbon Dioxide (21.0-32.0) meq/L Anion Gap (5-15) meq/L BUN (7-18) mg/dL Creatinine (0.60-1.30) mg/dL Estimated GFR (>89) mL/min POC Glucose 196 H 191 H 229 H (68-110) mg/dl Random Glucose (74-106) mg/dL Calcium (8.5-10.1) mg/dL Phosphorus (2.5-4.9) mg/dL AST (15-37) U/L Alkaline Phosphatase (45-117) U/L Troponin I (0.02-0.05) ng/mL Total Protein (6.4-8.2) g/dL Beta-Hydroxybutyric Acd (0.00-0.39) mmol/L Urine Clarity (Clear) Urine Occult Blood (Negative) Ur Leukocyte Esterase (Negative) Urine RBC (0-3) /hpf Urine Bacteria (None) /hpf Urine Yeast (None) /hpf 12/18/17 12/18/17 12/18/17 Range/Units 11:02 12:00 12:06 MCH (27.0-34.0) pg VBG pH (7.360-7.400) VBG pCO2 (44-48) mmHG VBG pO2 (35-40) mmHG VBG HCO3 (22-26) mmol/L VBG O2 Saturation (70-76) % VBG Base Excess (-2-2) mmol/L Sodium (136-145) meq/L Potassium 3.2 L (3.5-5.1) meq/L Chloride 111 H (98-107) meq/L Carbon Dioxide 15.7 L (21.0-32.0) meq/L Anion Gap (5-15) meq/L BUN 4 L (7-18) mg/dL Creatinine (0.60-1.30) mg/dL Estimated GFR (>89) mL/min POC Glucose 255 H 272 H (68-110) mg/dl Random Glucose 312 H D (74-106) mg/dL Calcium 8.3 L (8.5-10.1) mg/dL Phosphorus (2.5-4.9) mg/dL AST (15-37) U/L Alkaline Phosphatase (45-117) U/L Troponin I (0.02-0.05) ng/mL Total Protein (6.4-8.2) g/dL Beta-Hydroxybutyric Acd 1.90 H D (0.00-0.39) mmol/L Urine Clarity (Clear) Urine Occult Blood (Negative) Ur Leukocyte Esterase (Negative) Urine RBC (0-3) /hpf Urine Bacteria (None) /hpf Urine Yeast (None) /hpf 12/18/17 Range/Units 13:26 MCH (27.0-34.0) pg VBG pH (7.360-7.400) VBG pCO2 (44-48) mmHG VBG pO2 (35-40) mmHG VBG HCO3 (22-26) mmol/L VBG O2 Saturation (70-76) % VBG Base Excess (-2-2) mmol/L Sodium (136-145) meq/L Potassium (3.5-5.1) meq/L Chloride (98-107) meq/L Carbon Dioxide (21.0-32.0) meq/L Anion Gap (5-15) meq/L BUN (7-18) mg/dL Creatinine (0.60-1.30) mg/dL Estimated GFR (>89) mL/min POC Glucose 224 H (68-110) mg/dl Random Glucose (74-106) mg/dL Calcium (8.5-10.1) mg/dL Phosphorus (2.5-4.9) mg/dL AST (15-37) U/L Alkaline Phosphatase (45-117) U/L Troponin I (0.02-0.05) ng/mL Total Protein (6.4-8.2) g/dL Beta-Hydroxybutyric Acd (0.00-0.39) mmol/L Urine Clarity (Clear) Urine Occult Blood (Negative) Ur Leukocyte Esterase (Negative) Urine RBC (0-3) /hpf Urine Bacteria (None) /hpf Urine Yeast (None) /hpf Short CBC 12/17/17 Range/Units 14:57 WBC 10.8 (4.0-11.0) th/mm3 Hgb 15.0 (13.0-17.0) gm/dL Hct 46.3 (39.0-51.0) % Plt Count 187 (150-450) th/mm3 BMP 12/17/17 12/17/17 12/18/17 14:57 18:10 05:06 Sodium 129 L 137 137 Potassium 4.3 4.0 3.2 L D Chloride 100 107 108 H Carbon Dioxide 12.5 L 13.4 L 16.2 L BUN 7 7 4 L Creatinine 1.39 H 1.26 0.98 Calcium 8.9 8.1 L D 8.4 L 12/18/17 12:00 Sodium 139 Potassium 3.2 L Chloride 111 H Carbon Dioxide 15.7 L BUN 4 L Creatinine 0.85 Calcium 8.3 L Cardiac Enzymes 12/17/17 Range/Units 14:57 Total Creatine Kinase 172 (39-308) U/L Troponin I Less than 0.02 L (0.02-0.05) ng/mL Liver Function 12/17/17 Range/Units 14:57 Total Bilirubin 0.6 (0.2-1.0) mg/dL AST 10 L (15-37) U/L ALT 25 (12-78) U/L Alkaline Phosphatase 123 H (45-117) U/L Albumin 3.5 (3.4-5.0) g/dL Urine 12/17/17 Range/Units 15:20 Urine Color Straw (Yellw/Straw) Urine Clarity Hazy H (Clear) Urine pH 5.0 (5.0-8.5) Ur Specific [place] 1.029 (1.002-1.035) Urine Protein Negative (Neg-Trace) mg/dL Urine Glucose (UA) 500 or greater (Negative) mg/dL <Aleksander Gomez E - 12/18/17 15:37> Abnormal lab results 12/17/17 12/17/17 12/17/17 Range/Units 14:57 14:57 15:20 MCH 26.9 L (27.0-34.0) pg VBG pH (7.360-7.400) VBG pCO2 (44-48) mmHG VBG pO2 (35-40) mmHG VBG HCO3 (22-26) mmol/L VBG O2 Saturation (70-76) % VBG Base Excess (-2-2) mmol/L Sodium 129 L (136-145) meq/L Potassium (3.5-5.1) meq/L Chloride (98-107) meq/L Carbon Dioxide 12.5 L (21.0-32.0) meq/L Anion Gap 17 H (5-15) meq/L BUN (7-18) mg/dL Creatinine 1.39 H (0.60-1.30) mg/dL Estimated GFR 73 L (>89) mL/min POC Glucose (68-110) mg/dl Random Glucose 505 H* (74-106) mg/dL Calcium (8.5-10.1) mg/dL Phosphorus (2.5-4.9) mg/dL AST 10 L (15-37) U/L Alkaline Phosphatase 123 H (45-117) U/L Troponin I Less than 0.02 L (0.02-0.05) ng/mL Total Protein 8.8 H (6.4-8.2) g/dL Beta-Hydroxybutyric Acd (0.00-0.39) mmol/L Urine Clarity Hazy H (Clear) Urine Occult Blood Small H (Negative) Ur Leukocyte Esterase Small H (Negative) Urine RBC 5 H (0-3) /hpf Urine Bacteria Rare H (None) /hpf Urine Yeast Occasional H (None) /hpf 12/17/17 12/17/17 12/17/17 Range/Units 16:55 18:10 18:10 MCH (27.0-34.0) pg VBG pH 7.19 L* (7.360-7.400) VBG pCO2 32 L (44-48) mmHG VBG pO2 30 L (35-40) mmHG VBG HCO3 12 L* (22-26) mmol/L VBG O2 Saturation 51 L (70-76) % VBG Base Excess -14.6 L (-2-2) mmol/L Sodium (136-145) meq/L Potassium (3.5-5.1) meq/L Chloride (98-107) meq/L Carbon Dioxide 13.4 L (21.0-32.0) meq/L Anion Gap 17 H (5-15) meq/L BUN (7-18) mg/dL Creatinine (0.60-1.30) mg/dL Estimated GFR 81 L (>89) mL/min POC Glucose (68-110) mg/dl Random Glucose 354 H D (74-106) mg/dL Calcium 8.1 L D (8.5-10.1) mg/dL Phosphorus (2.5-4.9) mg/dL AST (15-37) U/L Alkaline Phosphatase (45-117) U/L Troponin I (0.02-0.05) ng/mL Total Protein (6.4-8.2) g/dL Beta-Hydroxybutyric Acd 6.73 H 6.66 H (0.00-0.39) mmol/L Urine Clarity (Clear) Urine Occult Blood (Negative) Ur Leukocyte Esterase (Negative) Urine RBC (0-3) /hpf Urine Bacteria (None) /hpf Urine Yeast (None) /hpf 12/17/17 12/17/17 12/17/17 Range/Units 20:04 21:08 21:58 MCH (27.0-34.0) pg VBG pH (7.360-7.400) VBG pCO2 (44-48) mmHG VBG pO2 (35-40) mmHG VBG HCO3 (22-26) mmol/L VBG O2 Saturation (70-76) % VBG Base Excess (-2-2) mmol/L Sodium (136-145) meq/L Potassium (3.5-5.1) meq/L Chloride (98-107) meq/L Carbon Dioxide (21.0-32.0) meq/L Anion Gap (5-15) meq/L BUN (7-18) mg/dL Creatinine (0.60-1.30) mg/dL Estimated GFR (>89) mL/min POC Glucose 253 H 206 H 145 H (68-110) mg/dl Random Glucose (74-106) mg/dL Calcium (8.5-10.1) mg/dL Phosphorus (2.5-4.9) mg/dL AST (15-37) U/L Alkaline Phosphatase (45-117) U/L Troponin I (0.02-0.05) ng/mL Total Protein (6.4-8.2) g/dL Beta-Hydroxybutyric Acd (0.00-0.39) mmol/L Urine Clarity (Clear) Urine Occult Blood (Negative) Ur Leukocyte Esterase (Negative) Urine RBC (0-3) /hpf Urine Bacteria (None) /hpf Urine Yeast (None) /hpf 12/17/17 12/17/17 12/18/17 Range/Units 22:24 23:10 00:05 MCH (27.0-34.0) pg VBG pH (7.360-7.400) VBG pCO2 (44-48) mmHG VBG pO2 (35-40) mmHG VBG HCO3 (22-26) mmol/L VBG O2 Saturation (70-76) % VBG Base Excess (-2-2) mmol/L Sodium (136-145) meq/L Potassium (3.5-5.1) meq/L Chloride (98-107) meq/L Carbon Dioxide (21.0-32.0) meq/L Anion Gap (5-15) meq/L BUN (7-18) mg/dL Creatinine (0.60-1.30) mg/dL Estimated GFR (>89) mL/min POC Glucose 152 H 170 H 172 H (68-110) mg/dl Random Glucose (74-106) mg/dL Calcium (8.5-10.1) mg/dL Phosphorus (2.5-4.9) mg/dL AST (15-37) U/L Alkaline Phosphatase (45-117) U/L Troponin I (0.02-0.05) ng/mL Total Protein (6.4-8.2) g/dL Beta-Hydroxybutyric Acd (0.00-0.39) mmol/L Urine Clarity (Clear) Urine Occult Blood (Negative) Ur Leukocyte Esterase (Negative) Urine RBC (0-3) /hpf Urine Bacteria (None) /hpf Urine Yeast (None) /hpf 12/18/17 12/18/17 12/18/17 Range/Units 01:59 03:05 04:23 MCH (27.0-34.0) pg VBG pH (7.360-7.400) VBG pCO2 (44-48) mmHG VBG pO2 (35-40) mmHG VBG HCO3 (22-26) mmol/L VBG O2 Saturation (70-76) % VBG Base Excess (-2-2) mmol/L Sodium (136-145) meq/L Potassium (3.5-5.1) meq/L Chloride (98-107) meq/L Carbon Dioxide (21.0-32.0) meq/L Anion Gap (5-15) meq/L BUN (7-18) mg/dL Creatinine (0.60-1.30) mg/dL Estimated GFR (>89) mL/min POC Glucose 172 H 185 H 184 H (68-110) mg/dl Random Glucose (74-106) mg/dL Calcium (8.5-10.1) mg/dL Phosphorus (2.5-4.9) mg/dL AST (15-37) U/L Alkaline Phosphatase (45-117) U/L Troponin I (0.02-0.05) ng/mL Total Protein (6.4-8.2) g/dL Beta-Hydroxybutyric Acd (0.00-0.39) mmol/L Urine Clarity (Clear) Urine Occult Blood (Negative) Ur Leukocyte Esterase (Negative) Urine RBC (0-3) /hpf Urine Bacteria (None) /hpf Urine Yeast (None) /hpf 12/18/17 12/18/17 12/18/17 Range/Units 05:06 05:09 06:39 MCH (27.0-34.0) pg VBG pH (7.360-7.400) VBG pCO2 (44-48) mmHG VBG pO2 (35-40) mmHG VBG HCO3 (22-26) mmol/L VBG O2 Saturation (70-76) % VBG Base Excess (-2-2) mmol/L Sodium (136-145) meq/L Potassium 3.2 L D (3.5-5.1) meq/L Chloride 108 H (98-107) meq/L Carbon Dioxide 16.2 L (21.0-32.0) meq/L Anion Gap (5-15) meq/L BUN 4 L (7-18) mg/dL Creatinine (0.60-1.30) mg/dL Estimated GFR (>89) mL/min POC Glucose 192 H 199 H (68-110) mg/dl Random Glucose 180 H D (74-106) mg/dL Calcium 8.4 L (8.5-10.1) mg/dL Phosphorus 1.7 L (2.5-4.9) mg/dL AST (15-37) U/L Alkaline Phosphatase (45-117) U/L Troponin I (0.02-0.05) ng/mL Total Protein (6.4-8.2) g/dL Beta-Hydroxybutyric Acd (0.00-0.39) mmol/L Urine Clarity (Clear) Urine Occult Blood (Negative) Ur Leukocyte Esterase (Negative) Urine RBC (0-3) /hpf Urine Bacteria (None) /hpf Urine Yeast (None) /hpf 12/18/17 12/18/17 12/18/17 Range/Units 07:43 09:06 09:56 MCH (27.0-34.0) pg VBG pH (7.360-7.400) VBG pCO2 (44-48) mmHG VBG pO2 (35-40) mmHG VBG HCO3 (22-26) mmol/L VBG O2 Saturation (70-76) % VBG Base Excess (-2-2) mmol/L Sodium (136-145) meq/L Potassium (3.5-5.1) meq/L Chloride (98-107) meq/L Carbon Dioxide (21.0-32.0) meq/L Anion Gap (5-15) meq/L BUN (7-18) mg/dL Creatinine (0.60-1.30) mg/dL Estimated GFR (>89) mL/min POC Glucose 196 H 191 H 229 H (68-110) mg/dl Random Glucose (74-106) mg/dL Calcium (8.5-10.1) mg/dL Phosphorus (2.5-4.9) mg/dL AST (15-37) U/L Alkaline Phosphatase (45-117) U/L Troponin I (0.02-0.05) ng/mL Total Protein (6.4-8.2) g/dL Beta-Hydroxybutyric Acd (0.00-0.39) mmol/L Urine Clarity (Clear) Urine Occult Blood (Negative) Ur Leukocyte Esterase (Negative) Urine RBC (0-3) /hpf Urine Bacteria (None) /hpf Urine Yeast (None) /hpf Short CBC 12/17/17 Range/Units 14:57 WBC 10.8 (4.0-11.0) th/mm3 Hgb 15.0 (13.0-17.0) gm/dL Hct 46.3 (39.0-51.0) % Plt Count 187 (150-450) th/mm3 BMP 12/17/17 12/17/17 12/18/17 14:57 18:10 05:06 Sodium 129 L 137 137 Potassium 4.3 4.0 3.2 L D Chloride 100 107 108 H Carbon Dioxide 12.5 L 13.4 L 16.2 L BUN 7 7 4 L Creatinine 1.39 H 1.26 0.98 Calcium 8.9 8.1 L D 8.4 L Cardiac Enzymes 08/17/18 Range/Units 14:57 Total Creatine Kinase 172 (39-308) U/L Troponin I Less than 0.02 L (0.02-0.05) ng/mL Liver Function 12/17/17 Range/Units 14:57 Total Bilirubin 0.6 (0.2-1.0) mg/dL AST 10 L (15-37) U/L ALT 25 (12-78) U/L Alkaline Phosphatase 123 H (45-117) U/L Albumin 3.5 (3.4-5.0) g/dL Urine 12/17/17 Range/Units 15:20 Urine Color Straw (Yellw/Straw) Urine Clarity Hazy H (Clear) Urine pH 5.0 (5.0-8.5) Ur Specific [place] 1.029 (1.002-1.035) Urine Protein Negative (Neg-Trace) mg/dL Urine Glucose (UA) 500 or greater (Negative) mg/dL <Nawaf Parr - 12/18/17 10:23> - Imaging Impressions Venous Doppler Study 12/17/17 19:36 CONCLUSION: 1. No evidence of deep venous thrombosis. 2. Ill-defined fluid collection in the right groin region. <Aleksander Gomez - 12/18/17 15:37> Impressions Venous Doppler Study 12/17/17 19:36 CONCLUSION: 1. No evidence of deep venous thrombosis. 2. Ill-defined fluid collection in the right groin region. <Nawaf Parr - 12/18/17 10:23> Physical Exam Vital signs: Vital Signs 12/17/17 18:00 12/17/17 20:00 12/17/17 20:23 Temperature 99.1 F Pulse Rate 86 86 Respiratory Rate 20 16 Blood Pressure 143/84 H 136/79 Pulse Oximetry 99 94 L 100 12/17/17 21:00 12/17/17 21:01 12/17/17 22:00 Temperature Pulse Rate 98 H 91 H 83 Respiratory Rate 21 18 14 Blood Pressure 163/73 H 150/67 H Pulse Oximetry 97 99 100 12/17/17 23:00 12/18/17 00:00 12/18/17 01:00 Temperature 98.6 F Pulse Rate 89 88 83 Respiratory Rate 20 20 13 Blood Pressure 132/60 135/63 151/69 H Pulse Oximetry 98 97 100 12/18/17 02:00 12/18/17 03:00 12/18/17 03:03 Temperature Pulse Rate 79 107 H 81 Respiratory Rate 13 22 17 Blood Pressure 134/65 153/85 H Pulse Oximetry 100 97 100 12/18/17 04:00 12/18/17 05:00 12/18/17 05:50 Temperature 98.3 F Pulse Rate 82 78 77 Respiratory Rate 17 17 13 Blood Pressure 138/66 Pulse Oximetry 98 100 100 12/18/17 06:00 12/18/17 07:00 12/18/17 08:00 Temperature 98.2 F Pulse Rate 83 80 79 Respiratory Rate 17 15 15 Blood Pressure 155/72 H 140/72 136/69 Pulse Oximetry 96 99 96 12/18/17 09:00 12/18/17 10:00 12/18/17 11:00 Temperature Pulse Rate 78 78 87 Respiratory Rate 11 L 9 L 15 Blood Pressure 135/70 137/64 140/75 Pulse Oximetry 100 100 100 12/18/17 12:00 12/18/17 13:00 12/18/17 14:00 Temperature 98.4 F Pulse Rate 83 81 83 Respiratory Rate 18 12 13 Blood Pressure 145/74 H 141/63 H 126/56 L Pulse Oximetry 100 99 98 12/18/17 15:00 Temperature Pulse Rate 85 Respiratory Rate 15 Blood Pressure 146/65 H Pulse Oximetry 98 Intake & Output 12/17/17 12/18/17 12/18/17 18:59 06:59 18:59 Intake Total 1999 2275 / 2275 1100 / 1100 Output Total 1200 / 1200 Balance 1999 1075 / 1075 1100 / 1100 Weight 127.006 kg 122 kg Intake: IV 1999 2275 / 2275 1100 / 1100 D5W/Normal Saline Inj 1,000 ML 1000 / 1000 @ 200 mls/hr IV.CONT .Q5H BEN Rx#:[id number] NovoLIN R (IV Infusion) 100 100 / 100 UNIT In NS Inj 99 ML @ 13 UNITS /HR 13 mls/hr IV.CONT TITRATE PRN Rx#:[id number] NS Inj 1,000 ML @ 250 mls/hr IV 1974 .CONT .Q4H BEN Rx#:[id number] KCl 20 mEq Premix Inj 20 meq In 200 / 200 100 / 100 100 ml @ 50 mls/hr IV.SIG Q2H PRN Rx#:[id number] NS Inj 1,000 ML @ Wide Open IV. 1999 SIG BOLUS ONE Rx#:[id number] Output: Urine 1200 / 1200 Other: Date of Last Bowel Movement 12/15/17 12/15/17 Weight On Admission 122.4 kg <GomezAleksander miller - 12/18/17 15:37> Vital Signs 12/17/17 12:34 12/17/17 15:22 12/17/17 18:00 Temperature 98.2 F Pulse Rate 108 H 86 Respiratory Rate 20 20 Blood Pressure 148/86 H 143/84 H Pulse Oximetry 99 99 99 12/17/17 20:00 12/17/17 20:23 12/17/17 21:00 Temperature 99.1 F Pulse Rate 86 98 H Respiratory Rate 16 21 Blood Pressure 136/79 Pulse Oximetry 94 L 100 97 12/17/17 21:01 12/17/17 22:00 12/17/17 23:00 Temperature Pulse Rate 91 H 83 89 Respiratory Rate 18 14 20 Blood Pressure 163/73 H 150/67 H 132/60 Pulse Oximetry 99 100 98 12/18/17 00:00 12/18/17 01:00 12/18/17 02:00 Temperature 98.6 F Pulse Rate 88 83 79 Respiratory Rate 20 13 13 Blood Pressure 135/63 151/69 H 134/65 Pulse Oximetry 97 100 100 12/18/17 03:00 12/18/17 03:03 12/18/17 04:00 Temperature 98.3 F Pulse Rate 107 H 81 82 Respiratory Rate 22 17 17 Blood Pressure 153/85 H Pulse Oximetry 97 100 98 12/18/17 05:00 12/18/17 05:50 12/18/17 06:00 Temperature Pulse Rate 78 77 83 Respiratory Rate 17 13 17 Blood Pressure 138/66 155/72 H Pulse Oximetry 100 100 96 12/18/17 07:00 12/18/17 08:00 12/18/17 09:00 Temperature 98.2 F Pulse Rate 80 79 78 Respiratory Rate 15 15 11 L Blood Pressure 140/72 136/69 135/70 Pulse Oximetry 99 96 100 12/18/17 10:00 Temperature Pulse Rate 78 Respiratory Rate 9 L Blood Pressure 137/64 Pulse Oximetry 100 Intake & Output 12/17/17 12/18/17 12/18/17 18:59 06:59 18:59 Intake Total 19995 / 2275 Output Total 1200 / 1200 Balance 1999 1075 / 1075 Weight 127.006 kg 122 kg Intake: IV 1999 / 2274 NovoLIN R (IV Infusion) 100 100 / 100 UNIT In NS Inj 99 ML @ 13 UNITS /HR 13 mls/hr IV.CONT TITRATE PRN Rx#:[id number] NS Inj 1,000 ML @ 250 mls/hr IV 1974 .CONT .Q4H BEN Rx#:[id number] KCl 20 mEq Premix Inj 20 meq In 200 / 200 100 ml @ 50 mls/hr IV.SIG Q2H PRN Rx#:[id number] NS Inj 1,000 ML @ Wide Open IV. 1999 SIG BOLUS ONE Rx#:[id number] Output: Urine 1200 / 1200 Other: Date of Last Bowel Movement 12/15/17 12/15/17 Weight On Admission 122.4 kg <Nawaf Parr - 12/18/17 10:23> Narrative: GENERAL: Well-appearing male in no acute distress. Laying in bed and answering questions appropriately SKIN: Focused skin assessment warm/dry. No rashes. In the right groin there is a non-pulsatile area of fluctuance that measures roughly 3 x 5 cm. Small openings overlying the area with purulent discharge. HEAD: Atraumatic. Normocephalic. EYES: Pupils equal and round. No scleral icterus. No injection or drainage. ENT: No nasal bleeding or discharge. Mucous membranes pink and dry. NECK: Trachea midline. No JVD. CARDIOVASCULAR: Regular rate and rhythm. No murmur appreciated. Intact and equal peripheral pulses. RESPIRATORY: No accessory muscle use. Clear to auscultation. Breath sounds equal bilaterally. GASTROINTESTINAL: Abdomen soft, non-tender, nondistended. Hepatic and splenic margins not palpable. MUSCULOSKELETAL: No obvious deformities. No clubbing. No cyanosis. No edema. NEUROLOGICAL: Awake and alert. No obvious cranial nerve deficits. Motor grossly within normal limits. Normal sensation. Normal speech. PSYCHIATRIC: Appropriate mood and affect; insight and judgment normal. <Nawaf Parr - 12/18/17 13:24> Assessment and Plan - Assessment (1) DKA (diabetic ketoacidoses) Code(s): E13.10 - Other specified diabetes mellitus with ketoacidosis without coma Status: Acute (2) Right leg pain Code(s): M79.604 - Pain in right leg Status: Acute (3) Abscess Code(s): L02.91 - Cutaneous abscess, unspecified Status: Acute (4) Nutrition, metabolism, and development symptoms Code(s): R63.8 - Other symptoms and signs concerning food and fluid intake Status: Acute <Aleksander Gomez - 12/18/17 15:37> (1) DKA (diabetic ketoacidoses) Code(s): E13.10 - Other specified diabetes mellitus with ketoacidosis without coma Status: Acute Plan: Glucose admission 505, gap 17, beta hydroxybutyrate 6.73, potassium 4.3. -2 L of normal saline, glucose improved to 354 -Maintenance fluids normal saline 250 mL/h -Replete potassium per protocol -Administer insulin per protocol: 0.1 U/kg/h no bolus was given after response to fluid bolus -Anion gap closed on the morning of 12/18. Blood sugar less than 250 and patient tolerated p.o. intake. -Give one-time Levemir 10 units subcutaneous now, will continue drip for another hour prior to initiating sliding scale insulin -Normal saline at 150 mL/h (2) Right leg pain Code(s): M79.604 - Pain in right leg Status: Acute Plan: Nontender and no swelling or erythema on exam. Given patient's decreased mobility need to rule out DVT -Right leg ultrasound was negative for DVT but did show a 4.3 x 2 cm fluid collection in the right inguinal area. 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 Could potentially have hidradenitis suppurativa I&D performed by resident team on 12/18. See procedure note Wound culture pending Starting p.o. clindamycin 300 mg every 6 hours as patient has known MRSA colonization (4) Nutrition, metabolism, and development symptoms Code(s): R63.8 - Other symptoms and signs concerning food and fluid intake Status: Acute Plan: Diet: Diabetic 2200 DVT prophylaxis: Lovenox Full code <Nawaf Parr - 12/18/17 13:09> - Assessment and Plan Attending nte: patient seen and examined with resident team. Discussed in detail the management of DKA and transition to eventual outpatient care. See separate note re procedure. Agree with plans as ordered by resident team. Aleksander Gomez MD 12/18/2017. <Aleksander Gomez - 12/18/17 15:37> 32-year-old male no past medical history admitted for DKA. Increasing weakness , urinary frequency, thirst over the past 2 weeks. Glucose on admission 505 with gap of 17. Given 2 L of normal saline and glucose improved to 354. Ultrasound of the right leg was ordered to rule out DVT, and fluid collection in the right inguinal region. Abscess I&D performed on 12/18. Anion gap closed on the morning of 12/18 and patient has been transitioning to subcutaneous insulin. Potassium replacement per protocol Disposition: 3 days Discharge: Home <Nawaf Parr - 12/18/17 13:24> <Nawaf Parr B - Last Filed: 12/18/17 13:09> (1) DKA (diabetic ketoacidoses) Qualifiers: Diabetes mellitus type: other specified (including ROCIO) Diabetes mellitus complication detail: without coma Qualified Code(s): E13.10 - Other specified diabetes mellitus with ketoacidosis without coma <Aleksander Gomez E - Last Filed: 12/18/17 15:37> (1) DKA (diabetic ketoacidoses) Qualifiers: Diabetes mellitus type: other specified (including ROCIO) Diabetes mellitus complication detail: without coma Qualified Code(s): E13.10 - Other specified diabetes mellitus with ketoacidosis without coma <Nawaf Parr B - Last Filed: 12/18/17 13:09> (1) DKA (diabetic ketoacidoses) Qualifiers: Diabetes mellitus type: other specified (including ROCIO) Diabetes mellitus complication detail: without coma Qualified Code(s): E13.10 - Other specified diabetes mellitus with ketoacidosis without coma <Aleksander Gomez E - Last Filed: 12/18/17 15:37> (1) DKA (diabetic ketoacidoses) Qualifiers: Diabetes mellitus type: other specified (including ROCIO) Diabetes mellitus complication detail: without coma Qualified Code(s): E13.10 - Other specified diabetes mellitus with ketoacidosis without coma
[2017-12-18] MEDS ORDERED: Acetaminophen 325 MG Tablet PO PRN (12:31)
[2017-12-18] MEDS ORDERED: Naloxone Inj 0.4 MG/ML Vial IV.PUSH PRN (12:31)
[2017-12-18] MEDS ORDERED: Insulin Detemir Inj 1,000 UNIT/10 ML Vial SQ ONE ×2 (12:42→21:12)
[2017-12-18] MEDS ORDERED: Dextrose 50% in Water 50 ML Vial IV.PUSH PRN (12:44)
--- NOTE | 2017-12-18 12:51 | P.PCN ---
<Nawaf Parr B - Last Filed: 12/18/17 12:46> Date of procedure: 12/18/17 Pre-op diagnosis: R inguinal abscess Post-op diagnosis: same Procedure: Patient was consented for I&D. Risks and benefits were discussed and time out performed by physician. Patient expressed understanding. R inguinal skin was prepped with Betadine x3. 2% lidocaine w/ epinephrine (4cc) was infiltrated in skin and injected into the abscess. A #11 blade was used to make a 2-3cm incision overlying the abscess. Purulent, non odorous material was expressed. Abscess explored with breaking up loculations. Iodoform packing was placed. Bleeding minimal. Nursing staff cleaned and dressed the wound following the procedure. Performed by Dr. Parr, supervised by Dr. Gomez Date 12/18/17 at 1200 <Aleksander Gomez E - Last Filed: 12/18/17 15:35> Procedure: Attending note: MD present for entire visit including presence and supervision during I and D. Aleksander Gomez MD 12/18/17.
[2017-12-18 13:08] LABS: Anion Gap 12 meq/L (5-15); Blood Urea Nitrogen 4 mg/dL (7-18); Calcium 8.3 mg/dL (8.5-10.1); Carbon Dioxide 15.7 meq/L (21.0-32.0); Chloride 111 meq/L (98-107); Glomerular Filtration Rate Greater Than 89 mL/min (>89); Glucose,Random 312 mg/dL (74-106); Potassium 3.2 meq/L (3.5-5.1); Sodium 139 meq/L (136-145)
--- NOTE | 2017-12-18 15:03 | ECG ---
Date Performed: 12/17/2017 Time Performed: 15:17:26 PTAGE: 32 years EKG: Sinus rhythm POSSIBLE LEFT ATRIAL ENLARGEMENT EARLY REPOLARIZATION BORDERLINE ECG NO PREVIOUS TRACING DOCTOR: Silviano Beth Interpretating Date/Time 12/18/2017 15:01:34
[2017-12-18] MEDS: Enoxaparin Inj 40 MG/0.4 ML Syringe SQ SCH (18:01)
[2017-12-18] MEDS: Insulin NovoLOG Aspart Correctional Sugar Inj SQ SCH ×2 (18:01→21:01)
[2017-12-18 20:31] LABS: Anion Gap 14 meq/L (5-15); Blood Urea Nitrogen 5 mg/dL (7-18); Calcium 8.2 mg/dL (8.5-10.1); Chloride 109 meq/L (98-107); Glomerular Filtration Rate Greater Than 89 mL/min (>89); Glucose,Random 332 mg/dL (74-106); Potassium 3.7 meq/L (3.5-5.1); Sodium 138 meq/L (136-145)
[2017-12-18] MEDS: oxyCODONE/Acetaminophen 10/325 Tablet PO PRN (21:01)
[2017-12-19] MEDS: Sod Chloride 0.9% Inj 1,000 ML IV.CONT SCH ×6 (01:26→14:32)
[2017-12-19] MEDS: Insulin NovoLOG Aspart Correctional Sugar Inj SQ SCH ×5 (02:42→21:01)
[2017-12-19] MEDS: Chlorhexidine Gluconate 2% 1 Pack (2 Cloths) TOPICAL SCH (04:27)
[2017-12-19 06:06] LABS: Baso % (Auto) 0.7 % (0.0-2.0); Eos # (Auto) 0.2 th/mm3 (0.0-0.4); Eos % (Auto) 3.2 % (0.0-4.0); Hematocrit 39.8 % (39.0-51.0); Lymph % (Auto) 30.4 % (9.0-44.0); Mean Corpuscular HGB Conc 32.5 % (32.0-36.0); Mean Corpuscular Hemoglobin 26.5 pg (27.0-34.0); Mean Corpuscular Volume 81.5 fL (80.0-100.0); Mean Platelet Volume 10.1 fL (7.0-11.0); Mono # (Auto) 0.7 th/mm3 (0.0-0.9); Mono % (Auto) 10.1 % (0.0-8.0); Neut # (Auto) 3.7 th/mm3 (1.8-7.7); Neut % (Auto) 55.6 % (16.0-70.0); Platelet Count 180 th/mm3 (150-450); Red Blood Count 4.89 mil/mm3 (4.50-5.90); Red Cell Distribution Width 15.8 % (11.6-17.2); White Blood Count 6.7 th/mm3 (4.0-11.0)
[2017-12-19 06:12] LABS: Anion Gap 12 meq/L (5-15); Blood Urea Nitrogen 5 mg/dL (7-18); Calcium 8.4 mg/dL (8.5-10.1); Chloride 110 meq/L (98-107); Glomerular Filtration Rate Greater Than 89 mL/min (>89); Glucose,Random 246 mg/dL (74-106); Potassium 3.2 meq/L (3.5-5.1); Sodium 140 meq/L (136-145)
[2017-12-19] MEDS ORDERED: Potassium Phosphate Inj 30 MMOL in Sodium Chlor 0.9% Inj 250 ML IV.SIG PRN (06:26)
[2017-12-19] MEDS ORDERED: Potassium Phosphate 500 MG Soluble Tablet PO PRN ×2 (06:26)
[2017-12-19] MEDS ORDERED: Magnesium Sulfate Inj 2 GM in Sodium Chlor 0.9% Inj 96 ML IV.SIG PRN (06:26)
[2017-12-19] MEDS ORDERED: Potassium Chloride 25 MEQ Effervescent Tablet PO PRN (06:26)
[2017-12-19] MEDS ORDERED: Magnesium Oxide 400 MG Tablet PO PRN (06:26)
[2017-12-19] MEDS ORDERED: Magnesium Sulfate Inj 4 GM in Sodium Chlor 0.9% Inj 92 ML IV.SIG PRN (06:26)
[2017-12-19] MEDS ORDERED: Sodium Phosphate Inj 30 MMOL in Sodium Chlor 0.9% Inj 250 ML IV.SIG PRN (06:26)
[2017-12-19] MEDS ORDERED: Potassium Chlor 40 mEq Premix 40 MEQ/100 ML PIGGYBACK IV.SIG PRN ×2 (06:26)
[2017-12-19] MEDS ORDERED: Potassium Chlor 20 mEq Premix 20 MEQ/100 ML PIGGYBACK IV.SIG PRN ×2 (06:26)
--- NOTE | 2017-12-19 08:08 | P.PNFP ---
Subjective Interval history: Patient was transitioned to subcutaneous insulin with sliding scale on day prior. Had no hypoglycemic episodes overnight. Patient states he is feeling much better overall in the wound and is right groin is feeling better as well. Denies any nausea or vomiting, chest pain or shortness of breath. <Nawaf Parr - 12/19/17 13:57> Results - Labs Result diagrams: 12/19/17 04:44 12/19/17 04:44 <Nawaf Parr - 12/19/17 08:08> Abnormal lab results 12/18/17 12/18/17 12/18/17 Range/Units 17:12 19:47 20:55 MCH (27.0-34.0) pg Bailey % (Auto) (0.0-8.0) % Band Neuts % (Manual) (0-6) % Eosinophils % (Manual) (0-4) % Metamyelocytes % (Man) (0-1) % Myelocytes % (Man) (0-0) % Potassium (3.5-5.1) meq/L Chloride 109 H (98-107) meq/L Carbon Dioxide 15.0 L (21.0-32.0) meq/L BUN 5 L (7-18) mg/dL POC Glucose 237 H 401 H (68-110) mg/dl Random Glucose 332 H (74-106) mg/dL Calcium 8.2 L (8.5-10.1) mg/dL Phosphorus (2.5-4.9) mg/dL Beta-Hydroxybutyric Acd (0.00-0.39) mmol/L 12/19/17 12/19/17 12/19/17 Range/Units 02:42 04:44 04:44 MCH 26.5 L (27.0-34.0) pg Bailey % (Auto) 10.1 H (0.0-8.0) % Band Neuts % (Manual) 11 H (0-6) % Eosinophils % (Manual) 5 H (0-4) % Metamyelocytes % (Man) 5 H (0-1) % Myelocytes % (Man) 1 H (0-0) % Potassium 3.2 L (3.5-5.1) meq/L Chloride 110 H (98-107) meq/L Carbon Dioxide 18.0 L (21.0-32.0) meq/L BUN 5 L (7-18) mg/dL POC Glucose 234 H (68-110) mg/dl Random Glucose 246 H (74-106) mg/dL Calcium 8.4 L (8.5-10.1) mg/dL Phosphorus (2.5-4.9) mg/dL Beta-Hydroxybutyric Acd (0.00-0.39) mmol/L 12/19/17 12/19/17 12/19/17 Range/Units 04:44 04:44 07:34 MCH (27.0-34.0) pg Bailey % (Auto) (0.0-8.0) % Band Neuts % (Manual) (0-6) % Eosinophils % (Manual) (0-4) % Metamyelocytes % (Man) (0-1) % Myelocytes % (Man) (0-0) % Potassium (3.5-5.1) meq/L Chloride (98-107) meq/L Carbon Dioxide (21.0-32.0) meq/L BUN (7-18) mg/dL POC Glucose 186 H (68-110) mg/dl Random Glucose (74-106) mg/dL Calcium (8.5-10.1) mg/dL Phosphorus 2.2 L (2.5-4.9) mg/dL Beta-Hydroxybutyric Acd 3.02 H D (0.00-0.39) mmol/L 12/19/17 Range/Units 12:07 MCH (27.0-34.0) pg Bailey % (Auto) (0.0-8.0) % Band Neuts % (Manual) (0-6) % Eosinophils % (Manual) (0-4) % Metamyelocytes % (Man) (0-1) % Myelocytes % (Man) (0-0) % Potassium (3.5-5.1) meq/L Chloride (98-107) meq/L Carbon Dioxide (21.0-32.0) meq/L BUN (7-18) mg/dL POC Glucose 300 H (68-110) mg/dl Random Glucose (74-106) mg/dL Calcium (8.5-10.1) mg/dL Phosphorus (2.5-4.9) mg/dL Beta-Hydroxybutyric Acd (0.00-0.39) mmol/L Short CBC 12/19/17 Range/Units 04:44 WBC 6.7 (4.0-11.0) th/mm3 Hgb 13.0 D (13.0-17.0) gm/dL Hct 39.8 (39.0-51.0) % Plt Count 180 (150-450) th/mm3 [facility] 12/18/17 12/19/17 19:47 04:44 Sodium 138 140 Potassium 3.7 3.2 L Chloride 109 H 110 H Carbon Dioxide 15.0 L 18.0 L BUN 5 L 5 L Creatinine 0.91 0.88 Calcium 8.2 L 8.4 L <Aleksander Gomez E - 12/19/17 13:28> Abnormal lab results 12/18/17 12/18/17 12/18/17 Range/Units 09:06 09:56 11:02 MCH (27.0-34.0) pg Bailey % (Auto) (0.0-8.0) % Potassium (3.5-5.1) meq/L Chloride (98-107) meq/L Carbon Dioxide (21.0-32.0) meq/L BUN (7-18) mg/dL POC Glucose 191 H 229 H 255 H (68-110) mg/dl Random Glucose (74-106) mg/dL Calcium (8.5-10.1) mg/dL Phosphorus (2.5-4.9) mg/dL Beta-Hydroxybutyric Acd (0.00-0.39) mmol/L 12/18/17 12/18/17 12/18/17 Range/Units 12:00 12:06 13:26 MCH (27.0-34.0) pg Bailey % (Auto) (0.0-8.0) % Potassium 3.2 L (3.5-5.1) meq/L Chloride 111 H (98-107) meq/L Carbon Dioxide 15.7 L (21.0-32.0) meq/L BUN 4 L (7-18) mg/dL POC Glucose 272 H 224 H (68-110) mg/dl Random Glucose 312 H D (74-106) mg/dL Calcium 8.3 L (8.5-10.1) mg/dL Phosphorus (2.5-4.9) mg/dL Beta-Hydroxybutyric Acd 1.90 H D (0.00-0.39) mmol/L 12/18/17 12/18/17 12/18/17 Range/Units 17:12 19:47 20:55 MCH (27.0-34.0) pg Bailey % (Auto) (0.0-8.0) % Potassium (3.5-5.1) meq/L Chloride 109 H (98-107) meq/L Carbon Dioxide 15.0 L (21.0-32.0) meq/L BUN 5 L (7-18) mg/dL POC Glucose 237 H 401 H (68-110) mg/dl Random Glucose 332 H (74-106) mg/dL Calcium 8.2 L (8.5-10.1) mg/dL Phosphorus (2.5-4.9) mg/dL Beta-Hydroxybutyric Acd (0.00-0.39) mmol/L 12/19/17 12/19/17 12/19/17 Range/Units 02:42 04:44 04:44 MCH 26.5 L (27.0-34.0) pg Bailey % (Auto) 10.1 H (0.0-8.0) % Potassium 3.2 L (3.5-5.1) meq/L Chloride 110 H (98-107) meq/L Carbon Dioxide 18.0 L (21.0-32.0) meq/L BUN 5 L (7-18) mg/dL POC Glucose 234 H (68-110) mg/dl Random Glucose 246 H (74-106) mg/dL Calcium 8.4 L (8.5-10.1) mg/dL Phosphorus (2.5-4.9) mg/dL Beta-Hydroxybutyric Acd (0.00-0.39) mmol/L 12/19/17 12/19/17 12/19/17 Range/Units 04:44 04:44 07:34 MCH (27.0-34.0) pg Bailey % (Auto) (0.0-8.0) % Potassium (3.5-5.1) meq/L Chloride (98-107) meq/L Carbon Dioxide (21.0-32.0) meq/L BUN (7-18) mg/dL POC Glucose 186 H (68-110) mg/dl Random Glucose (74-106) mg/dL Calcium (8.5-10.1) mg/dL Phosphorus 2.2 L (2.5-4.9) mg/dL Beta-Hydroxybutyric Acd 3.02 H D (0.00-0.39) mmol/L Short CBC 12/19/17 Range/Units 04:44 WBC 6.7 (4.0-11.0) th/mm3 Hgb 13.0 D (13.0-17.0) gm/dL Hct 39.8 (39.0-51.0) % Plt Count 180 (150-450) th/mm3 BMP 12/18/17 12/18/17 12/19/17 12:00 19:47 04:44 Sodium 139 138 140 Potassium 3.2 L 3.7 3.2 L Chloride 111 H 109 H 110 H Carbon Dioxide 15.7 L 15.0 L 18.0 L BUN 4 L 5 L 5 L Creatinine 0.85 0.91 0.88 Calcium 8.3 L 8.2 L 8.4 L <Nawaf Parr B - 12/19/17 08:08> Physical Exam Vital signs: Vital Signs 12/18/17 14:00 12/18/17 15:00 12/18/17 16:00 Temperature 98.5 F Pulse Rate 83 85 84 Respiratory Rate 13 15 15 Blood Pressure 126/56 L 146/65 H 133/73 Pulse Oximetry 98 98 100 12/18/17 17:00 12/18/17 18:00 12/18/17 19:00 Temperature Pulse Rate 78 82 90 Respiratory Rate 23 18 17 Blood Pressure 127/62 124/77 135/78 Pulse Oximetry 100 100 100 12/18/17 20:00 12/18/17 22:00 12/19/17 00:00 Temperature 98.9 F 97.7 F Pulse Rate 91 H 78 77 Respiratory Rate 18 23 Blood Pressure 143/83 H 143/77 H Pulse Oximetry 100 100 12/19/17 02:00 12/19/17 04:00 12/19/17 06:00 Temperature 98.1 F Pulse Rate 74 88 85 Respiratory Rate 13 Blood Pressure 128/78 Pulse Oximetry 100 12/19/17 08:00 12/19/17 10:00 12/19/17 12:00 Temperature 97.6 F 98.6 F Pulse Rate 88 82 83 Respiratory Rate 16 21 Blood Pressure 146/43 H 132/69 Pulse Oximetry 99 99 Intake & Output 12/18/17 12/19/17 12/19/17 18:59 06:59 18:59 Intake Total 2160 / 2160 3945 / 3945 1100 / 1100 Output Total 2850 / 2850 2041 Balance -690 / -690 1903 / 1903 1100 / 1100 Weight 128 kg Intake: IV 1200 / 1200 2265 / 2265 1100 / 1100 D5W/Normal Saline Inj 1,000 ML 1000 / 1000 @ 200 mls/hr IV.CONT .Q5H BEN Rx#:[id number] NovoLIN R (IV Infusion) 100 65 / 65 UNIT In NS Inj 99 ML @ 13 UNITS /HR 13 mls/hr IV.CONT TITRATE PRN Rx#:[id number] NS Inj 1,000 ML @ 150 mls/hr IV 2000 / 2000 1000 / 1000 .CONT .Q6H40M [facility] Rx#:[id number] KCl 20 mEq Premix Inj 20 meq In 200 / 200 200 / 200 100 / 100 100 ml @ 50 mls/hr IV.SIG Q2H PRN Rx#:[id number] Oral 1680 / 1680 Oral Supplement 960 / 960 Output: Urine 2850 / 2850 2041 Other: # Voids 1 Date of Last Bowel Movement 12/15/17 12/15/17 12/15/17 # Bowel Movements 0 <Aleksander Gomez - 12/19/17 13:28> Vital Signs 12/18/17 09:00 12/18/17 10:00 12/18/17 11:00 Temperature Pulse Rate 78 78 87 Respiratory Rate 11 L 9 L 15 Blood Pressure 135/70 137/64 140/75 Pulse Oximetry 100 100 100 12/18/17 12:00 12/18/17 13:00 12/18/17 14:00 Temperature 98.4 F Pulse Rate 83 81 83 Respiratory Rate 18 12 13 Blood Pressure 145/74 H 141/63 H 126/56 L Pulse Oximetry 100 99 98 12/18/17 15:00 12/18/17 16:00 12/18/17 17:00 Temperature 98.5 F Pulse Rate 85 84 78 Respiratory Rate 15 15 23 Blood Pressure 146/65 H 133/73 127/62 Pulse Oximetry 98 100 100 12/18/17 18:00 12/18/17 19:00 12/18/17 20:00 Temperature 98.9 F Pulse Rate 82 90 91 H Respiratory Rate 17 18 Blood Pressure 124/77 135/78 143/83 H Pulse Oximetry 100 100 100 12/18/17 22:00 12/19/17 00:00 12/19/17 02:00 Temperature 97.7 F Pulse Rate 78 77 74 Respiratory Rate 23 Blood Pressure 143/77 H Pulse Oximetry 100 12/19/17 04:00 12/19/17 06:00 Temperature 98.1 F Pulse Rate 88 85 Respiratory Rate 13 Blood Pressure 128/78 Pulse Oximetry 100 Intake & Output 12/18/17 12/19/17 12/19/17 18:59 06:59 18:59 Intake Total 2160 / 2160 3945 / 3945 Output Total 2850 / 2850 204 / 2041 Balance -690 / -690 1903 / 1903 Weight 128 kg Intake: IV 1200 / 1200 2265 / 2265 D5W/Normal Saline Inj 1,000 ML 1000 / 1000 @ 200 mls/hr IV.CONT .Q5H BEN Rx#:[id number] NovoLIN R (IV Infusion) 100 65 / 65 UNIT In NS Inj 99 ML @ 13 UNITS /HR 13 mls/hr IV.CONT TITRATE PRN Rx#:[id number] NS Inj 1,000 ML @ 150 mls/hr IV 1999 / 1999 .CONT .Q6H40M BEN Rx#:[id number] KCl 20 mEq Premix Inj 20 meq In 200 / 200 200 / 200 100 ml @ 50 mls/hr IV.SIG Q2H PRN Rx#:[id number] Oral 1680 / 1680 Oral Supplement 960 / 960 Output: Urine 2850 / 2850 2041 / 2041 Other: # Voids 1 Date of Last Bowel Movement 12/15/17 12/15/17 # Bowel Movements 0 <Nawaf Parr - 12/19/17 08:08> Narrative: GENERAL: Well-appearing male in no acute distress. Laying in bed and answering questions appropriately SKIN: Focused skin assessment warm/dry. No rashes. Right groin I&D site with no surrounding erythema and packing is in place. Much improved from prior exam HEAD: Atraumatic. Normocephalic. EYES: Pupils equal and round. No scleral icterus. No injection or drainage. ENT: No nasal bleeding or discharge. Mucous membranes pink and dry. NECK: Trachea midline. No JVD. CARDIOVASCULAR: Regular rate and rhythm. No murmur appreciated. Intact and equal peripheral pulses. RESPIRATORY: No accessory muscle use. Clear to auscultation. Breath sounds equal bilaterally. GASTROINTESTINAL: Abdomen soft, non-tender, nondistended. Hepatic and splenic margins not palpable. MUSCULOSKELETAL: No obvious deformities. No clubbing. No cyanosis. No edema. NEUROLOGICAL: Awake and alert. No obvious cranial nerve deficits. Motor grossly within normal limits. Normal sensation. Normal speech. PSYCHIATRIC: Appropriate mood and affect; insight and judgment normal. <Nawaf Parr B - 12/19/17 13:57> Assessment and Plan - Assessment (1) DKA (diabetic ketoacidoses) Code(s): E13.10 - Other specified diabetes mellitus with ketoacidosis without coma Status: Acute (2) Right leg pain Code(s): M79.604 - Pain in right leg Status: Acute (3) Abscess Code(s): L02.91 - Cutaneous abscess, unspecified Status: Acute (4) Nutrition, metabolism, and development symptoms Code(s): R63.8 - Other symptoms and signs concerning food and fluid intake Status: Acute <Aleksander Gomez - 12/19/17 13:28> (1) DKA (diabetic ketoacidoses) Code(s): E13.10 - Other specified diabetes mellitus with ketoacidosis without coma Status: Acute Plan: Patient came in in DKA glucose admission 505, gap 17, beta hydroxybutyrate 6.73 , potassium 4.3. -2 L of normal saline, glucose improved to 354 -Maintenance fluids normal saline 250 mL/h -Replete potassium per protocol -Anion gap closed on the morning of 12/18. Was transitioned to subcutaneous insulin -Currently on Levemir 7.5 units twice daily with a low-dose sliding scale. -Stopping IV fluids on 12/19 -Okay to transfer to [facility] floor (2) Abscess Code(s): L02.91 - Cutaneous abscess, unspecified Status: Acute Plan: Right inguinal abscess are seen on ultrasound Patient has a history of recurrent abscesses in the groin/axillary regions. Could potentially have hidradenitis suppurativa I&D performed by resident team on 12/18. See procedure note Wound culture growing group B strep, Klebsiella and MRSA Clindamycin 300 mg p.o. every 6 hours (12/18 to present), Cipro 500 mg p.o. twice daily (12/19 to present Vital signs stable overnight, no leukocytosis (3) Right leg pain Code(s): M79.604 - Pain in right leg Status: Acute Plan: Nontender and no swelling or erythema on exam. Given patient's decreased mobility need to rule out DVT -Right leg ultrasound was negative for DVT but did show a 4.3 x 2 cm fluid collection in the right inguinal area. See abscess workup below (4) Nutrition, metabolism, and development symptoms Code(s): R63.8 - Other symptoms and signs concerning food and fluid intake Status: Acute Plan: Diet: Diabetic 2200 DVT prophylaxis: Lovenox Full code <Nawaf Parr - 12/19/17 13:57> - Assessment and Plan 32-year-old male no past medical history admitted for DKA. Increasing weakness , urinary frequency, thirst over the past 2 weeks. Glucose on admission 505 with gap of 17. Given 2 L of normal saline and glucose improved to 354. Ultrasound of the right leg was ordered to rule out DVT, and fluid collection in the right inguinal region. Abscess I&D performed on 12/18. Anion gap closed on the morning of 12/18 and patient has been positioned to subcutaneous insulin. Potassium replacement per protocol. Wound culture grew group B strep, Klebsiella, MRSA. On p.o. clindamycin and Cipro Disposition: Potentially in the next 2 days Discharge: Home <Nawaf Parr - 12/19/17 13:57> Attending note: Patient seen and examined with resident team. Agree with evaluation and management and orders as recorded with transfer to the medical/ surgical floor. Patient improving. Aleksander Gomez MD 12/19/2017. <Aleksander Gomez - 12/19/17 13:29> <Nawaf Parr B - Last Filed: 12/19/17 13:57> (1) DKA (diabetic ketoacidoses) Qualifiers: Diabetes mellitus type: other specified (including ROCIO) Diabetes mellitus complication detail: without coma Qualified Code(s): E13.10 - Other specified diabetes mellitus with ketoacidosis without coma <Aleksander Gomez E - Last Filed: 12/19/17 13:28> (1) DKA (diabetic ketoacidoses) Qualifiers: Diabetes mellitus type: other specified (including ROCIO) Diabetes mellitus complication detail: without coma Qualified Code(s): E13.10 - Other specified diabetes mellitus with ketoacidosis without coma <Nawaf Parr B - Last Filed: 12/19/17 13:57> (1) DKA (diabetic ketoacidoses) Qualifiers: Diabetes mellitus type: other specified (including ROCIO) Diabetes mellitus complication detail: without coma Qualified Code(s): E13.10 - Other specified diabetes mellitus with ketoacidosis without coma <Aleksander Gomez E - Last Filed: 12/19/17 13:28> (1) DKA (diabetic ketoacidoses) Qualifiers: Diabetes mellitus type: other specified (including ROCIO) Diabetes mellitus complication detail: without coma Qualified Code(s): E13.10 - Other specified diabetes mellitus with ketoacidosis without coma
[2017-12-19 08:11] LABS: Eosinophils 5 % (0-4); Lymphocytes 22 % (9-44); Metamyelocytes 5 % (0-1); Monocytes 8 % (0-8); Myelocytes 1 % (0-0); Platelet Estimate Normal (Normal); Platelet Morphology Normal (Normal); RBC Morphology Normal (Normal)
[2017-12-19] MEDS: Senna/Docusate Sodium 8.6/50 MG Tablet PO SCH ×2 (08:20→21:02)
[2017-12-19] MEDS: Insulin Detemir Inj 1,000 UNIT/10 ML Vial SQ SCH ×2 (08:20→21:02)
[2017-12-19] MEDS: Potassium Chlor 20 mEq Premix 20 MEQ/100 ML PIGGYBACK IV.SIG PRN ×2 (08:29→13:06)
[2017-12-19] MEDS: oxyCODONE/Acetaminophen 10/325 Tablet PO PRN (08:30)
[2017-12-19] MEDS ORDERED: Insulin Detemir Inj 1,000 UNIT/10 ML Vial SQ SCH ×4 (09:00→21:00)
[2017-12-19 13:28] LABS: Hemoglobin A1c 15.6 % (4.3-6.0)
[2017-12-19] MEDS: Ciprofloxacin 500 MG Tablet PO SCH (14:32)
[2017-12-19] MEDS: Enoxaparin Inj 40 MG/0.4 ML Syringe SQ SCH (20:55)
[2017-12-20] MEDS: Ciprofloxacin 500 MG Tablet PO SCH ×3 (00:32→14:58)
[2017-12-20] MEDS: Sod Chloride 0.9% Inj 1,000 ML IV.CONT SCH ×8 (02:30→20:52)
[2017-12-20] MEDS: oxyCODONE/Acetaminophen 10/325 Tablet PO PRN (03:20)
[2017-12-20] MEDS: Insulin NovoLOG Aspart Correctional Sugar Inj SQ SCH ×5 (03:23→20:24)
[2017-12-20] MEDS: Chlorhexidine Gluconate 2% 1 Pack (2 Cloths) TOPICAL SCH (03:27)
[2017-12-20 07:13] LABS: Baso # (Auto) 0.1 th/mm3 (0.0-0.2); Eos # (Auto) 0.3 th/mm3 (0.0-0.4); Eos % (Auto) 3.3 % (0.0-4.0); Hemoglobin 12.5 gm/dL (13.0-17.0); Lymph # (Auto) 2.3 th/mm3 (1.0-4.8); Lymph % (Auto) 28.9 % (9.0-44.0); Mean Corpuscular HGB Conc 32.9 % (32.0-36.0); Mean Corpuscular Hemoglobin 26.8 pg (27.0-34.0); Mean Corpuscular Volume 81.5 fL (80.0-100.0); Mono # (Auto) 0.9 th/mm3 (0.0-0.9); Neut # (Auto) 4.5 th/mm3 (1.8-7.7); Neut % (Auto) 55.8 % (16.0-70.0); Platelet Count 190 th/mm3 (150-450); Red Blood Count 4.66 mil/mm3 (4.50-5.90); Red Cell Distribution Width 15.5 % (11.6-17.2)
[2017-12-20 07:44] LABS: Anion Gap 11 meq/L (5-15); Blood Urea Nitrogen 5 mg/dL (7-18); Calcium 8.6 mg/dL (8.5-10.1); Carbon Dioxide 21.4 meq/L (21.0-32.0); Chloride 108 meq/L (98-107); Glomerular Filtration Rate Greater Than 89 mL/min (>89); Glucose,Random 223 mg/dL (74-106); Potassium 3.3 meq/L (3.5-5.1); Sodium 140 meq/L (136-145)
[2017-12-20] MEDS: Potassium Bicarbonate 25 MEQ Effervescent Tablet PO SCH ×5 (08:44→17:50)
[2017-12-20] MEDS: Senna/Docusate Sodium 8.6/50 MG Tablet PO SCH ×2 (08:44→20:25)
[2017-12-20] MEDS: Insulin Detemir Inj 1,000 UNIT/10 ML Vial SQ SCH (08:44)
--- NOTE | 2017-12-20 11:15 | P.PNFP ---
Subjective Interval history: Patient feeling well this morning. Has some leg pain unchanged since admission. Says overall has more energy. Good appetite and denies nausea or vomiting. States he is motivated to have a physician to follow up with on his medications and wants to get insurance. Worried about new sore on left leg. <Oliva Mehta - 12/20/17 11:15> Results - Labs Result diagrams: 12/20/17 06:04 12/20/17 06:04 <Aleksander Gomez - 12/20/17 13:21> Abnormal lab results 12/17/17 12/19/17 12/19/17 Range/Units 18:10 16:52 21:01 Hgb (13.0-17.0) gm/dL Hct (39.0-51.0) % MCH (27.0-34.0) pg [place] % (Auto) (0.0-8.0) % Potassium (3.5-5.1) meq/L Chloride (98-107) meq/L BUN (7-18) mg/dL POC Glucose 206 H 317 H (68-110) mg/dl Random Glucose (74-106) mg/dL Hemoglobin A1c 15.6 H (4.3-6.0) % 12/20/17 12/20/17 12/20/17 Range/Units 03:23 06:04 06:04 Hgb 12.5 L (13.0-17.0) gm/dL Hct 38.0 L (39.0-51.0) % MCH 26.8 L (27.0-34.0) pg [place] % (Auto) 11.0 H (0.0-8.0) % Potassium 3.3 L (3.5-5.1) meq/L Chloride 108 H (98-107) meq/L BUN 5 L (7-18) mg/dL POC Glucose 268 H (68-110) mg/dl Random Glucose 223 H (74-106) mg/dL Hemoglobin A1c (4.3-6.0) % 12/20/17 12/20/17 Range/Units 08:43 12:13 Hgb (13.0-17.0) gm/dL Hct (39.0-51.0) % MCH (27.0-34.0) pg [place] % (Auto) (0.0-8.0) % Potassium (3.5-5.1) meq/L Chloride (98-107) meq/L BUN (7-18) mg/dL POC Glucose 198 H 236 H (68-110) mg/dl Random Glucose (74-106) mg/dL Hemoglobin A1c (4.3-6.0) % Short CBC 12/20/17 Range/Units 06:04 WBC 8.0 (4.0-11.0) th/mm3 Hgb 12.5 L (13.0-17.0) gm/dL Hct 38.0 L (39.0-51.0) % Plt Count 190 (150-450) th/mm3 BMP 12/20/17 06:04 Sodium 140 Potassium 3.3 L Chloride 108 H Carbon Dioxide 21.4 BUN 5 L Creatinine 0.69 Calcium 8.6 <Aleksander Gomez - 12/20/17 13:21> Abnormal lab results 12/17/17 12/19/17 12/19/17 Range/Units 18:10 12:07 16:52 Hgb (13.0-17.0) gm/dL Hct (39.0-51.0) % MCH (27.0-34.0) pg [place] % (Auto) (0.0-8.0) % Potassium (3.5-5.1) meq/L Chloride (98-107) meq/L BUN (7-18) mg/dL POC Glucose 300 H 206 H (68-110) mg/dl Random Glucose (74-106) mg/dL Hemoglobin A1c 15.6 H (4.3-6.0) % 12/19/17 12/20/17 12/20/17 Range/Units 21:01 03:23 06:04 Hgb 12.5 L (13.0-17.0) gm/dL Hct 38.0 L (39.0-51.0) % MCH 26.8 L (27.0-34.0) pg [place] % (Auto) 11.0 H (0.0-8.0) % Potassium (3.5-5.1) meq/L Chloride (98-107) meq/L BUN (7-18) mg/dL POC Glucose 317 H 268 H (68-110) mg/dl Random Glucose (74-106) mg/dL Hemoglobin A1c (4.3-6.0) % 12/20/17 12/20/17 Range/Units 06:04 08:43 Hgb (13.0-17.0) gm/dL Hct (39.0-51.0) % MCH (27.0-34.0) pg [place] % (Auto) (0.0-8.0) % Potassium 3.3 L (3.5-5.1) meq/L Chloride 108 H (98-107) meq/L BUN 5 L (7-18) mg/dL POC Glucose 198 H (68-110) mg/dl Random Glucose 223 H (74-106) mg/dL Hemoglobin A1c (4.3-6.0) % Short CBC 12/20/17 Range/Units 06:04 WBC 8.0 (4.0-11.0) th/mm3 Hgb 12.5 L (13.0-17.0) gm/dL Hct 38.0 L (39.0-51.0) % Plt Count 190 (150-450) th/mm3 BMP 12/20/17 06:04 Sodium 140 Potassium 3.3 L Chloride 108 H Carbon Dioxide 21.4 BUN 5 L Creatinine 0.69 Calcium 8.6 <Oliva Mehta - 12/20/17 11:15> Physical Exam Vital signs: Vital Signs 12/19/17 14:00 12/19/17 16:00 12/19/17 20:00 Temperature 98.9 F 98.1 F Pulse Rate 87 80 98 H Respiratory Rate 21 18 Blood Pressure 135/72 128/64 Pulse Oximetry 99 100 12/20/17 00:00 12/20/17 04:33 12/20/17 08:00 Temperature 98.1 F 97.6 F Pulse Rate 98 H 74 Respiratory Rate 18 18 16 Blood Pressure 136/61 122/61 Pulse Oximetry 100 100 12/20/17 12:00 Temperature 97.6 F Pulse Rate 92 H Respiratory Rate 16 Blood Pressure 131/60 Pulse Oximetry 100 Intake & Output 12/19/17 12/20/17 12/20/17 18:59 06:59 18:59 Intake Total 2059 / 2059 100 / 100 0 / 0 Output Total 1600 / 1600 Balance 460 / 460 100 / 100 0 / 0 Intake: IV 1100 / 1100 100 / 100 0 / 0 NS Inj 1,000 ML @ 150 mls/hr IV 1000 / 1000 .CONT .Q6H40M [facility] Rx#:[id number] KCl 20 mEq Premix Inj 20 meq In 100 / 100 100 / 100 100 ml @ 50 mls/hr IV.SIG Q2H PRN Rx#:[id number] Oral 960 / 960 Output: Urine 1600 / 1600 Other: # Voids 2 2 Date of Last Bowel Movement 12/19/17 # Bowel Movements 2 <Aleksander Gomez - 12/20/17 13:21> Vital Signs 12/19/17 12:00 12/19/17 14:00 12/19/17 16:00 Temperature 98.6 F 98.9 F Pulse Rate 83 87 80 Respiratory Rate 21 21 Blood Pressure 132/69 135/72 Pulse Oximetry 99 99 12/19/17 20:00 12/20/17 00:00 12/20/17 04:33 Temperature 98.1 F 98.1 F Pulse Rate 98 H 98 H Respiratory Rate 18 18 18 Blood Pressure 128/64 136/61 Pulse Oximetry 100 100 12/20/17 08:00 Temperature 97.6 F Pulse Rate 74 Respiratory Rate 16 Blood Pressure 122/61 Pulse Oximetry 100 Intake & Output 12/19/17 12/20/17 12/20/17 18:59 06:59 18:59 Intake Total 2060 / 2060 100 / 100 0 / 0 Output Total 1600 / 1600 Balance 460 / 460 100 / 100 0 / 0 Intake: IV 1100 / 1100 100 / 100 0 / 0 NS Inj 1,000 ML @ 150 mls/hr IV 1000 / 1000 .CONT .Q6H40M [facility] Rx#:[id number] KCl 20 mEq Premix Inj 20 meq In 100 / 100 100 / 100 100 ml @ 50 mls/hr IV.SIG Q2H PRN Rx#:[id number] Oral 960 / 960 Output: Urine 1600 / 1600 Other: # Voids 2 2 Date of Last Bowel Movement 12/19/17 # Bowel Movements 2 <Oliva Mehta - 12/20/17 11:15> Narrative: GENERAL: Well-appearing male in no acute distress. Laying in bed and answering questions appropriately SKIN: Focused skin assessment warm/dry. No rashes. Right groin I&D site with no surrounding erythema and packing is in place. Much improved from prior exam. Dressing change showed serous sanguinous fluid and packing removed. Left inner thigh 4cm papule non fluctuant with central scabbing no erythema some tenderness HEAD: Atraumatic. Normocephalic. EYES: Pupils equal and round. No scleral icterus. No injection or drainage. ENT: No nasal bleeding or discharge. Mucous membranes pink and dry. NECK: Trachea midline. No JVD. CARDIOVASCULAR: Regular rate and rhythm. No murmur appreciated. Intact and equal peripheral pulses. RESPIRATORY: No accessory muscle use. Clear to auscultation. Breath sounds equal bilaterally. GASTROINTESTINAL: Abdomen soft, non-tender, nondistended. Hepatic and splenic margins not palpable. MUSCULOSKELETAL: No obvious deformities. No clubbing. No cyanosis. No edema. NEUROLOGICAL: Awake and alert. No obvious cranial nerve deficits. Motor grossly within normal limits. Normal sensation. Normal speech. PSYCHIATRIC: Appropriate mood and affect; insight and judgment normal. <Oliva Mehta - 12/20/17 11:15> Assessment and Plan - Assessment (1) DKA (diabetic ketoacidoses) Code(s): E13.10 - Other specified diabetes mellitus with ketoacidosis without coma Status: Acute (2) Abscess Code(s): L02.91 - Cutaneous abscess, unspecified Status: Acute (3) Right leg pain Code(s): M79.604 - Pain in right leg Status: Acute (4) Nutrition, metabolism, and development symptoms Code(s): R63.8 - Other symptoms and signs concerning food and fluid intake Status: Acute <Aleksander Gomez - 12/20/17 13:21> (1) DKA (diabetic ketoacidoses) Code(s): E13.10 - Other specified diabetes mellitus with ketoacidosis without coma Status: Acute Plan: Patient came in in DKA glucose admission 505, gap 17, beta hydroxybutyrate 6.73 , potassium 4.3. -2 L of normal saline, glucose improved to 354; Maintenance fluids normal saline 250 mL/h -Replete potassium per protocol; K lite 25 mg TID given -Anion gap closed on the morning of 12/18. Was transitioned to subcutaneous insulin -Started on novolin 70/30 20 units am and 10 units pm instead of Levemir 7.5 units BID; continued with a low-dose sliding scale. -Stopping IV fluids on 8/19 (2) Abscess Code(s): L02.91 - Cutaneous abscess, unspecified Status: Acute Plan: Right inguinal abscess are seen on ultrasound Patient has a history of recurrent abscesses in the groin/axillary regions. Could potentially have hidradenitis suppurativa I&D performed by resident team on 12/18. See procedure note Wound culture growing group B strep, Klebsiella and MRSA Clindamycin 300 mg p.o. every 6 hours (12/18 to present), Cipro 500 mg p.o. twice daily (12/19 to present Vital signs stable overnight, no leukocytosis (3) Right leg pain Code(s): M79.604 - Pain in right leg Status: Acute Plan: Nontender and no swelling or erythema on exam. Given patient's decreased mobility need to rule out DVT -Right leg ultrasound was negative for DVT but did show a 4.3 x 2 cm fluid collection in the right inguinal area. See abscess workup below (4) Nutrition, metabolism, and development symptoms Code(s): R63.8 - Other symptoms and signs concerning food and fluid intake Status: Acute Plan: Diet: Diabetic 2200 DVT prophylaxis: Lovenox Full code <Oliva Mehta C - 12/20/17 11:07> - Assessment and Plan Attending note 12/20/2017: Patient seen and evaluated with resident team. Remove the packing from his left groin, coordinated plans for discharge on 2017, overall patient is doing well and states that he feels better overall as well. Agree with orders as per the resident team. Aleksander Gomez MD 12/20/2017 <Aleksander Gomez - 12/20/17 13:21> 32-year-old male no past medical history admitted for DKA. Increasing weakness , urinary frequency, thirst over the past 2 weeks. Glucose on admission 505 with gap of 17. Given 2 L of normal saline and glucose improved to 354. Ultrasound of the right leg was ordered to rule out DVT, and fluid collection in the right inguinal region. Abscess I&D performed on 12/18. Anion gap closed on the morning of 12/18 and patient has been positioned to subcutaneous insulin. Potassium replacement per protocol. Wound culture grew group B strep, Klebsiella, MRSA. On p.o. clindamycin and Cipro Disposition: Potentially in the next 2 days Discharge: Home follow up with [facility] and case management consulted for medications and diabetes equipment <Oliva Mehta - 12/20/17 11:15> <Oliva Mehta - Last Filed: 12/20/17 11:07> (1) DKA (diabetic ketoacidoses) Qualifiers: Diabetes mellitus type: other specified (including ROCIO) Diabetes mellitus complication detail: without coma Qualified Code(s): E13.10 - Other specified diabetes mellitus with ketoacidosis without coma <Aleksander Gomez E - Last Filed: 12/20/17 13:21> (1) DKA (diabetic ketoacidoses) Qualifiers: Diabetes mellitus type: other specified (including ROCIO) Diabetes mellitus complication detail: without coma Qualified Code(s): E13.10 - Other specified diabetes mellitus with ketoacidosis without coma <Oliva Mehta - Last Filed: 12/20/17 11:07> (1) DKA (diabetic ketoacidoses) Qualifiers: Diabetes mellitus type: other specified (including ROCIO) Diabetes mellitus complication detail: without coma Qualified Code(s): E13.10 - Other specified diabetes mellitus with ketoacidosis without coma <Aleksander Gomez - Last Filed: 12/20/17 13:21> (1) DKA (diabetic ketoacidoses) Qualifiers: Diabetes mellitus type: other specified (including ROCIO) Diabetes mellitus complication detail: without coma Qualified Code(s): E13.10 - Other specified diabetes mellitus with ketoacidosis without coma
[2017-12-20] MEDS: Enoxaparin Inj 40 MG/0.4 ML Syringe SQ SCH (18:06)
[2017-12-21] MEDS: Ciprofloxacin 500 MG Tablet PO SCH ×3 (01:09→13:46)
[2017-12-21] MEDS: Sod Chloride 0.9% Inj 1,000 ML IV.CONT SCH ×4 (01:10→13:46)
[2017-12-21] MEDS: oxyCODONE/Acetaminophen 10/325 Tablet PO PRN (01:59)
[2017-12-21] MEDS: Insulin NovoLOG Aspart Correctional Sugar Inj SQ SCH ×3 (02:04→12:40)
[2017-12-21] MEDS: Chlorhexidine Gluconate 2% 1 Pack (2 Cloths) TOPICAL SCH (03:48)
[2017-12-21 05:06] LABS: Baso # (Auto) 0.1 th/mm3 (0.0-0.2); Baso % (Auto) 0.7 % (0.0-2.0); Eos # (Auto) 0.3 th/mm3 (0.0-0.4); Eos % (Auto) 2.9 % (0.0-4.0); Hematocrit 37.4 % (39.0-51.0); Hemoglobin 12.2 gm/dL (13.0-17.0); Lymph # (Auto) 2.5 th/mm3 (1.0-4.8); Mean Corpuscular HGB Conc 32.6 % (32.0-36.0); Mean Corpuscular Hemoglobin 26.7 pg (27.0-34.0); Mean Corpuscular Volume 81.9 fL (80.0-100.0); Mean Platelet Volume 9.7 fL (7.0-11.0); Mono # (Auto) 1.1 th/mm3 (0.0-0.9); Mono % (Auto) 11.1 % (0.0-8.0); Neut # (Auto) 5.6 th/mm3 (1.8-7.7); Neut % (Auto) 59.3 % (16.0-70.0); Platelet Count 194 th/mm3 (150-450); Red Blood Count 4.56 mil/mm3 (4.50-5.90); Red Cell Distribution Width 15.4 % (11.6-17.2); White Blood Count 9.5 th/mm3 (4.0-11.0)
[2017-12-21 05:31] LABS: Anion Gap 16 meq/L (5-15); Blood Urea Nitrogen 5 mg/dL (7-18); Calcium 8.5 mg/dL (8.5-10.1); Carbon Dioxide 20.5 meq/L (21.0-32.0); Chloride 104 meq/L (98-107); Glomerular Filtration Rate Greater Than 89 mL/min (>89); Glucose,Random 230 mg/dL (74-106); Sodium 140 meq/L (136-145)
[2017-12-21] MEDS ORDERED: Potassium Chloride 10 MEQ ER Capsule PO SCH (09:00)
[2017-12-21] MEDS: Senna/Docusate Sodium 8.6/50 MG Tablet PO SCH (09:03)
--- NOTE | 2017-12-21 09:38 | P.DCO ---
- Diagnosis (2) DKA (diabetic ketoacidoses) - Home Health Nursing Order: Medical education, Signs/symptoms of disease process, Diabetic education , Medication education-adverse effect - Certification I have seen patient Servando Aj on 12/21/17. My clinical findings support the need for the requested home health care services because: Infection with risk of complications, Injectable medication education/ administration I certify that my clinical findings support that this patient is homebound because: Need for psychosocial assistance Attestation/Additional Detail: new onset diabetes and will need diabetic education (2) DKA (diabetic ketoacidoses) Qualifiers: Diabetes mellitus type: other specified (including ROCIO) Diabetes mellitus complication detail: without coma Qualified Code(s): E13.10 - Other specified diabetes mellitus with ketoacidosis without coma
--- NOTE | 2017-12-21 09:45 | P.DS ---
Date of admission: 12/17/17 18:08 Primary care physician: No Primary Care Physician Brief History from admission: 32-year-old male with no past medical history who presents with complaint of generalized weakness over the last 2 weeks. For years been having these episodes but have only lasted a couple days and resolved. Said the weakness was getting worse as well as the nausea and vomiting. Was unable to eat much yesterday and nothing today. Had decreased appetite and noticed a 20 pound weight loss over the last 3 weeks. Feels more sleepy than usual. He noticed an increase in urination going about 10 times a day but not painful. Has had some constipation. Has felt dizzy. He said he would feel better at times when eating fruit. Has been trying to stay hydrated drinking lots of water. He has been trying to rehydrate but thinks his urine is darker than normal. He denies fever and chills. Denies abdominal pain, chest pain, dyspnea. He says his family medical history of high blood pressure but no diabetes. Has endorsed right leg pain since yesterday and his lower calf and states he has not been active or moving. Started a couple days ago but no erythema or swelling. He is sexually active and uses condoms but has not had the energy recently. 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 Stopped working 2 weeks ago because of weakness. DS: Diagnosis - Discharge Diagnosis (1) DKA (diabetic ketoacidoses) Status: Acute (2) Abscess Status: Acute (3) Right leg pain Status: Acute (4) Nutrition, metabolism, and development symptoms Status: Acute DS: Medications - Discharge Medications Prescriptions: blood-glucose meter #1 each ciprofloxacin HCl 500 mg PO BID 7 Days #14 tab clindamycin HCl [Cleocin HCl] 300 mg PO QID 6 Days #48 cap insulin NPH and regular human [Novolin 70/30 U-100 Insulin] 20 units SUB-Q DAILY @0800 30 Days ml insulin NPH and regular human [Novolin 70/30 U-100 Insulin] 10 units SUB-Q DAILY @1700 30 Days ml insulin syringes (disposable) #500 each lancets-blood glucose strips #200 each potassium chloride 40 meq PO DAILY #28 cap DS: Summary Hospital Course: 32-year-old male with no past medical history who presented with complaint of generalized weakness over the last 2 weeks and right leg pain. At admission, glucose was 505 with anion gap of 17. Given 2 L of normal saline and glucose improved to 354. Patient was started on maintenance fluids 250 mL/hr, insulin drip, and potassium per protocol. Ultrasound of the right leg was ordered and ruled out DVT, but found fluid collection in the right inguinal region. Discussion with patient revealed he gets pustules in groin and sometimes armpits. 12/18 I&D on abscess located inner right thigh near groin performed. Transitioned to subQ insulin and tolerating diet. Wound culture grew Group B strep, Klebsiella, and MRSA. Started on PO Clindamycin and Ciprofloxacin. Received diabetes education and butt presser consult. Home health visits set up at discharge. Case management assisted with prescription for antibiotics, novolin, glucose meter, strips, and lancets as well as follow up at the [facility]. - Time Spent with Patient Total time spent providing and/or coordinating discharge services: Less than 30 minutes - Quality: VTE Deep Vein Thrombosis/Pulmonary Embolism Present on Admission: No Exam Vital signs: Vital Signs 12/20/17 12:00 12/20/17 16:00 12/20/17 20:00 Temperature 97.6 F 97.9 F 98.6 F Pulse Rate 92 H 98 H 100 H Respiratory Rate 16 17 17 Blood Pressure 131/60 143/73 H 130/72 Pulse Oximetry 100 99 100 12/21/17 00:00 12/21/17 08:00 Temperature 97.7 F 98.2 F Pulse Rate 104 H 89 Respiratory Rate 17 18 Blood Pressure 119/58 L 146/70 H Pulse Oximetry 100 100 Intake & Output 12/20/17 12/21/17 12/21/17 18:59 06:59 18:59 Intake Total 800 / 800 2480 / 2480 Balance 800 / 800 2480 / 2480 Intake: IV 0 / 0 1999 / 1999 Oral 800 / 800 480 / 480 Other: # Voids 4 2 Date of Last Bowel Movement 12/20/17 Narrative: GENERAL: Well-appearing male in no acute distress. Laying in bed and answering questions appropriately SKIN: Focused skin assessment warm/dry. No rashes. Right groin I&D site with no surrounding erythema and packing is in place. Much improved from prior exam. Dressing change showed serous sanguinous fluid and packing removed. Left inner thigh 4cm papule non fluctuant with central scabbing no erythema some tenderness HEAD: Atraumatic. Normocephalic. EYES: Pupils equal and round. No scleral icterus. No injection or drainage. ENT: No nasal bleeding or discharge. Mucous membranes pink and dry. NECK: Trachea midline. No JVD. CARDIOVASCULAR: Regular rate and rhythm. No murmur appreciated. Intact and equal peripheral pulses. RESPIRATORY: No accessory muscle use. Clear to auscultation. Breath sounds equal bilaterally. GASTROINTESTINAL: Abdomen soft, non-tender, nondistended. Hepatic and splenic margins not palpable. MUSCULOSKELETAL: No obvious deformities. No clubbing. No cyanosis. No edema. NEUROLOGICAL: Awake and alert. No obvious cranial nerve deficits. Motor grossly within normal limits. Normal sensation. Normal speech. PSYCHIATRIC: Appropriate mood and affect; insight and judgment normal. Results Procedures completed during hospitalization: 12/18: I and D of right leg inner thigh abscess. "Patient was consented for I&D. Risks and benefits were discussed and time out performed by physician. Patient expressed understanding. R inguinal skin was prepped with Betadine x3. 2% lidocaine w/ epinephrine (4cc) was infiltrated in skin and injected into the abscess. A #11 blade was used to make a 2-3cm incision overlying the abscess. Purulent, non odorous material was expressed. Abscess explored with breaking up loculations. Iodoform packing was placed. Bleeding minimal. Nursing staff cleaned and dressed the wound following the procedure." Labs on day of discharge: Labs from last 24 hours 12/21/17 12/21/17 12/21/17 07:42 03:37 03:37 WBC 9.5 RBC 4.56 Hgb 12.2 L Hct 37.4 L MCV 81.9 MCH 26.7 L MCHC 32.6 RDW 15.4 Plt Count 194 MPV 9.7 Neut % (Auto) 59.3 Lymph % (Auto) 26.0 [place] % (Auto) 11.1 H Eos % (Auto) 2.9 Baso % (Auto) 0.7 Neut # (Auto) 5.6 Lymph # (Auto) 2.5 [place] # (Auto) 1.1 H Eos # (Auto) 0.3 Baso # (Auto) 0.1 WBC Differential . Differential Comment Auto diff final Sodium 140 Potassium 3.0 L Chloride 104 Carbon Dioxide 20.5 L Anion Gap 16 H BUN 5 L Creatinine 0.66 Estimated GFR Greater than 89 POC Glucose 226 H Random Glucose 230 H Calcium 8.5 12/21/17 12/20/17 12/20/17 02:01 20:18 17:46 WBC RBC Hgb Hct MCV MCH MCHC RDW Plt Count MPV Neut % (Auto) Lymph % (Auto) [place] % (Auto) Eos % (Auto) Baso % (Auto) Neut # (Auto) Lymph # (Auto) [place] # (Auto) Eos # (Auto) Baso # (Auto) WBC Differential Differential Comment Sodium Potassium Chloride Carbon Dioxide Anion Gap BUN Creatinine Estimated GFR POC Glucose 239 H 271 H 250 H Random Glucose Calcium 12/20/17 12:13 WBC RBC Hgb Hct MCV MCH MCHC RDW Plt Count MPV Neut % (Auto) Lymph % (Auto) [place] % (Auto) Eos % (Auto) Baso % (Auto) Neut # (Auto) Lymph # (Auto) [place] # (Auto) Eos # (Auto) Baso # (Auto) WBC Differential Differential Comment Sodium Potassium Chloride Carbon Dioxide Anion Gap BUN Creatinine Estimated GFR POC Glucose 236 H Random Glucose Calcium - Impressions ITS Impressions Venous Doppler Study 12/17/17 19:36 CONCLUSION: 1. No evidence of deep venous thrombosis. 2. Ill-defined fluid collection in the right groin region. Discharge Plan - Discharge Disposition Patient Disposition: 01 Discharge Home - Discharge Condition Condition: Serious - Physicians Team Primary Care Provider: Primary Care Genesis Mcknight Attending Provider: Aleksander Gomez
--- NOTE | 2017-12-21 09:56 | P.PNFP ---
Subjective Interval history: No acute events overnight. Patient continues to feel better every day from a weakness standpoint. Denies any nausea, vomiting, chest pain shortness of breath. Also states that the I&D site in his right groin continues to feel better daily. Patient stresses that he was to be discharged today. Lengthy discussion was had regarding importance of outpatient follow-up and management of his blood sugar, which the patient expresses understanding. He states that he seen several people in his community with complications due to diabetes and strongly wants to have follow-up and prevent any further complications. Results - Labs Result diagrams: 12/21/17 03:37 12/21/17 03:37 Abnormal lab results 12/20/17 12/20/17 12/20/17 Range/Units 12:13 17:46 20:18 Hgb (13.0-17.0) gm/dL Hct (39.0-51.0) % MCH (27.0-34.0) pg [place] % (Auto) (0.0-8.0) % [place] # (Auto) (0.0-0.9) th/mm3 Potassium (3.5-5.1) meq/L Carbon Dioxide (21.0-32.0) meq/L Anion Gap (5-15) meq/L BUN (7-18) mg/dL POC Glucose 236 H 250 H 271 H (68-110) mg/dl Random Glucose (74-106) mg/dL 12/21/17 12/21/17 12/21/17 Range/Units 02:01 03:37 03:37 Hgb 12.2 L (13.0-17.0) gm/dL Hct 37.4 L (39.0-51.0) % MCH 26.7 L (27.0-34.0) pg [place] % (Auto) 11.1 H (0.0-8.0) % [place] # (Auto) 1.1 H (0.0-0.9) th/mm3 Potassium 3.0 L (3.5-5.1) meq/L Carbon Dioxide 20.5 L (21.0-32.0) meq/L Anion Gap 16 H (5-15) meq/L BUN 5 L (7-18) mg/dL POC Glucose 239 H (68-110) mg/dl Random Glucose 230 H (74-106) mg/dL 08/21/18 Range/Units 07:42 Hgb (13.0-17.0) gm/dL Hct (39.0-51.0) % MCH (27.0-34.0) pg [place] % (Auto) (0.0-8.0) % [place] # (Auto) (0.0-0.9) th/mm3 Potassium (3.5-5.1) meq/L Carbon Dioxide (21.0-32.0) meq/L Anion Gap (5-15) meq/L BUN (7-18) mg/dL POC Glucose 226 H (68-110) mg/dl Random Glucose (74-106) mg/dL Short CBC 12/21/17 Range/Units 03:37 WBC 9.5 (4.0-11.0) th/mm3 Hgb 12.2 L (13.0-17.0) gm/dL Hct 37.4 L (39.0-51.0) % Plt Count 194 (150-450) th/mm3 BMP 12/21/17 03:37 Sodium 140 Potassium 3.0 L Chloride 104 Carbon Dioxide 20.5 L BUN 5 L Creatinine 0.66 Calcium 8.5 Physical Exam Vital signs: Vital Signs 12/20/17 12:00 12/20/17 16:00 12/20/17 20:00 Temperature 97.6 F 97.9 F 98.6 F Pulse Rate 92 H 98 H 100 H Respiratory Rate 16 17 17 Blood Pressure 131/60 143/73 H 130/72 Pulse Oximetry 100 99 100 12/21/17 00:00 12/21/17 08:00 Temperature 97.7 F 98.2 F Pulse Rate 104 H 89 Respiratory Rate 17 18 Blood Pressure 119/58 L 146/70 H Pulse Oximetry 100 100 Intake & Output 12/20/17 12/21/17 12/21/17 18:59 06:59 18:59 Intake Total 800 / 800 2480 / 2480 Balance 800 / 800 2480 / 2480 Intake: IV 0 / 0 1999 / 1999 Oral 800 / 800 480 / 480 Other: # Voids 4 2 Date of Last Bowel Movement 12/20/17 Narrative: GENERAL: Well-appearing male in no acute distress. Laying in bed and answering questions appropriately SKIN: Focused skin assessment warm/dry. No rashes. Right groin I&D site with no surrounding erythema and packing is in place. Much improved from prior exam. HEAD: Atraumatic. Normocephalic. EYES: Pupils equal and round. No scleral icterus. No injection or drainage. ENT: No nasal bleeding or discharge. Mucous membranes pink and dry. NECK: Trachea midline. No JVD. CARDIOVASCULAR: Regular rate and rhythm. No murmur appreciated. Intact and equal peripheral pulses. RESPIRATORY: No accessory muscle use. Clear to auscultation. Breath sounds equal bilaterally. GASTROINTESTINAL: Abdomen soft, non-tender, nondistended. Hepatic and splenic margins not palpable. MUSCULOSKELETAL: No obvious deformities. No clubbing. No cyanosis. No edema. NEUROLOGICAL: Awake and alert. No obvious cranial nerve deficits. Motor grossly within normal limits. Normal sensation. Normal speech. PSYCHIATRIC: Appropriate mood and affect; insight and judgment normal. Assessment and Plan - Assessment (1) Diabetes Code(s): E11.9 - Type 2 diabetes mellitus without complications Status: Acute Plan: Hemoglobin A1c of 15.6 on admission See DKA workup/plan as below (2) DKA (diabetic ketoacidoses) Code(s): E13.10 - Other specified diabetes mellitus with ketoacidosis without coma Status: Acute Plan: Patient came in in DKA glucose admission 505, gap 17, beta hydroxybutyrate 6.73 , potassium 4.3. -2 L of normal saline, glucose improved to 354; Maintenance fluids normal saline 250 mL/h -Replete potassium per protocol; potassium chloride 40 mEq p.o. daily -Anion gap closed on the morning of 12/18. Was transitioned to subcutaneous insulin -Started on novolin 70/30 20 units am and 10 units pm instead of Levemir 7.5 units BID; continued with a low-dose sliding scale. -Blood sugars in the low 200s overnight. May need to increase in Novolin dose as an outpatient. (3) Hypokalemia Code(s): E87.6 - Hypokalemia Status: Acute Plan: Potassium of 3.0 on 12/21 Patient has had borderline low potassium throughout this hospitalization Replacing with potassium chloride 40 mEq daily Repeating BMP at noon on 12/21, will be safe for discharge as long as potassium is stable or increasing. (4) Right leg pain Code(s): M79.604 - Pain in right leg Status: Acute Plan: Nontender and no swelling or erythema on exam. Given patient's decreased mobility need to rule out DVT -Right leg ultrasound was negative for DVT but did show a 4.3 x 2 cm fluid collection in the right inguinal area. 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 Could potentially have hidradenitis suppurativa I&D performed by resident team on 12/18. See procedure note Wound culture growing group B strep, Klebsiella and MRSA Clindamycin 300 mg p.o. every 6 hours (12/18 to present), Cipro 500 mg p.o. twice daily (12/19 to present Vital signs stable overnight, no leukocytosis (6) Nutrition, metabolism, and development symptoms Code(s): R63.8 - Other symptoms and signs concerning food and fluid intake Status: Acute Plan: Diet: Diabetic 2200 DVT prophylaxis: Lovenox Full code - Assessment and Plan 2-year-old male no past medical history admitted for DKA. Increasing weakness, urinary frequency, thirst over the past 2 weeks. Glucose on admission 505 with gap of 17. Given 2 L of normal saline and glucose improved to 354. Ultrasound of the right leg was ordered to rule out DVT, and fluid collection in the right inguinal region. Abscess I&D performed on 12/18. Anion gap closed on the morning of 12/18 and patient has been positioned to subcutaneous insulin. Wound culture grew group B strep, Klebsiella, MRSA. On p.o. clindamycin and Cipro. Patient currently on Novolin 20 units in the morning, 10 units at night. Continue to have some hypokalemia now replace with potassium chloride 40 mEq p.o. daily. Will discharge today as long as potassium is stable/uptrending. Will need close follow-up and this was discussed at length with the patient. (2) DKA (diabetic ketoacidoses) Qualifiers: Diabetes mellitus type: other specified (including ROCIO) Diabetes mellitus complication detail: without coma Qualified Code(s): E13.10 - Other specified diabetes mellitus with ketoacidosis without coma
[2017-12-21 10:45] LABS: HSV 1 PCR Negative (Negative); HSV 2 PCR Negative (Negative); Herpes Simplex DNA PCR Source GROIN ABCESS
[2017-12-21 14:17] LABS: Anion Gap 13 meq/L (5-15); Blood Urea Nitrogen 5 mg/dL (7-18); Calcium 8.7 mg/dL (8.5-10.1); Carbon Dioxide 24.1 meq/L (21.0-32.0); Chloride 103 meq/L (98-107); Glomerular Filtration Rate Greater Than 89 mL/min (>89); Glucose,Random 225 mg/dL (74-106); Potassium 3.2 meq/L (3.5-5.1); Sodium 140 meq/L (136-145)
== END 2017-12-21 15:40 | disposition home health service (06) ==
LOC: NEPD 12:30 → NEDA 18:08 → HIMC 19:50 → N07 12-19 17:35
PROVIDERS: ADMIT Family Medicine; ATTEND Family Medicine